=== PATIENT | male | born 2000 | race Caucasian/White ===

== ENCOUNTER 2018-01-14 15:12 | Inpatient (IN) | payer MEDICAID, SELFPAY ==
[2018-01-14 15:30] VITALS: BP 124/74; PULSE 93; RESP 16; TEMP 36.9; O2SAT 99; BMI 22.1; BMI 22.4
[2018-01-14] MEDS: chlordiazePOXIDE 25 MG Capsule PO (17:25)
[2018-01-14 18:00] VITALS: BP 141/68; PULSE 107; RESP 16; TEMP 36.9
[2018-01-14] MEDS: ARIPiprazole 2 MG Tablet PO (18:44)
[2018-01-14] MEDS: Venlafaxine XR 75 MG Capsule PO (18:44)
[2018-01-14] MEDS: Dicyclomine 10 MG Capsule 20 MG PO (18:54)
[2018-01-14] MEDS: Pramipexole Di-HCl 0.25 MG Tablet PO (19:00)
--- NOTE | 2018-01-14 21:15 | HP.PCM_ITS ---
Problem List (1) Opioid withdrawal Status: Acute History of Present Illness Date of Admission: 01/14/18 Chief Complaint: Opioid withdrawal The patient is a 17 year old M was directly admitted into the medical stabilization program at [facility] for acute opioid withdrawal. Patient has been using heroin for approximately 3 years and has recently began injecting heroin-before this he had snorted it. Patient complains of anxiety today, stomach cramps, tremors, nausea, nasal congestion, and generalized muscle aches. Last use of heroin was yesterday, patient also use methadone 2 days ago and he sometimes uses marijuana. Patient has a history of bipolar disorder and is currently on medications. On examination, patient is alert but appears nervous, he is appropriate, and somewhat reserved. Nation of the patient's arms reveal some track multani on the right arm which do not appear reddened or tender. Patient was directly admitted into the medical stabilization program on [facility] to for acute opiate withdrawal. Will adjust patient's bipolar medications which he states he recently was placed on after being off of for a period of a few months. Patient states that the medicines he currently takes were started recently and are at low doses. Past Medical History Allergies No Known Allergies Allergy (Verified 01/14/18 16:49) Surgical History: no surgical history Psychiatric History: Bipolar Lives: With Family Smoking Status: Current every day smoker Tobacco Use: Cigarettes Alcohol: None Drugs: Heroin, Marijuana, - - Meth - *Family History Maternal History Items: - - Recovering heroin addict Paternal History Items: No pertinent history Review of Systems Constitutional: Reports: Malaise, Fatigue. Denies: Chills, Fever, Weakness, Weight Change Eyes: Denies: Blurred vision, Cataracts, Conjunctivae Inflammation, Double vision, Drainage, Pain, Redness, Vision Change HEENT: Denies: Difficulty Hearing, Difficulty Swallowing, Dysphasia, Ear Pain, Eye Pain, Head Aches, Hearing Changes, Nasal bleeding, Nasal Congestion, Post Nasal Drip Cardiovascular: Denies: Chest Pain, Claudication, Chest Pressure, Chest Tightness, Edema Respiratory: Denies: Cough, Hemoptysis, Pleuritic Pain, Shortness of Breath, Shortness of breath upon exertion, Sputum production Gastrointestinal: Reports: Abdominal Pain - Complains of crampy abdominal pain, Nausea. Denies: Constipation, Diarrhea, Dyspepsia, Hematemesis, Hematochezia, Melena, Vomiting Genitourinary: Denies: Dysuria, Frequency, Hematuria, Hesitancy, Incontinence, Nocturia, Retention, Urgency Musculoskeletal: Reports: Muscle pain. Denies: Arm Pain, Back Pain, Foot Pain, Hand Pain, Joint stiffness, Joint swelling, Joint Tenderness, Leg Pain Skin: Denies: Dryness, Jaundice, Lesions, Pruritis, Rash, Skin Changes Neurological: Denies: Balance problems, Blurred vision, Double vision, Change in Speech, Difficulty swallowing, Focal weakness, Headaches, Incoordination Psychiatric: Reports: Anxiety, Depression. Denies: Homicidal Ideations, Suicidal Ideations Endocrine: Denies: Change in Body Habitus, Heat/ Cold Intolerance, Polyuria, Hx of Irradiation Hematologic/ Lymphatic: Denies: Adenopathy, Anemia, Easy Bruising, Hx of blood clot VTE Information - Inpt Only VTE Present on Admission: No VTE Mechan Device Prophylaxis: None VTE Pharm Prophylaxis ordered?: No Reason prophylaxis not ordered:: Treatment Not Indicated - low risk for VTE Patient Problems: Active and Suspected Problems Opioid withdrawal (Acute) - Physical Exam General: Alert, Oriented x3, Cooperative, No apparent distress, Well developed, Well nourished HEENT: Atraumatic, PERRLA, EOMI, Normocephalic Oral: Moist Mucosa Neck: Supple, No JVD, Negative Carotid Bruits, No Nuchal Rigidity, Trachea Midline, Thyroid Normal Size and Texture Lungs: Clear to auscultation, Normal air movement, No rhonchi, No wheeze, No rales Cardiovascular: Regular rate, Regular Rhythm, Normal S1, Normal S2, No murmurs, PMI Normal, No rub noted, No Gallop Abdomen: Bowel Sounds Present, Soft, Non Tender, Non-Distended, No hernias noted Extremities: No clubbing, No cyanosis, No edema, Capillary Refill Less than 3 Seconds Skin: No rashes, No breakdown, - - There are recent track multani on the patient' s right antecubital area, these do not appear to be reddened or tender Musculoskeletal: No Tenderness to Palpation of Joints or Extremities Neurological: Cranial nerves II-XII grossly intact, Neuro grossly intact, Sensory exam intact to light touch and pain, Coordination normal Psych/Mental Status: Normal Affect, Appropriate, Anxious, Restless, Alert and oriented to time, place, person, mood and affect Vital Signs Temp Pulse Resp BP Pulse Ox 98.4 F 107 H 16 141/68 H 99 01/14/18 18:00 01/14/18 18:00 01/14/18 18:00 01/14/18 18:00 01/14/18 15:30 Oxygen Delivery Method Room Air Weight: 59.1 kg Body Mass Index (BMI) 22.4 Assessment/Plan Active and Suspected Problems Opioid withdrawal (Acute) #1 acute opioid withdrawal-patient was admitted directly into the medical stabilization program, order sets were entered #2 bipolar disorder-I decided to increase the patient's medications which he takes as an outpatient, they are at low doses #3 polysubstance abuse including meth, heroin, and marijuana Code Visit Inpatient E&M: 20349 Init Hosp L3
[2018-01-14] MEDS: Methocarbamol 750 MG Tablet PO (21:43)
[2018-01-14] MEDS: Ibuprofen 600 MG Tablet PO (21:44)
[2018-01-14] MEDS: cloNIDine HCl 0.1 MG Tablet PO (21:44)
[2018-01-14] MEDS: QUEtiapine 25 MG Tablet PO (21:44)
[2018-01-14 21:47] VITALS: BP 123/66; PULSE 103; RESP 16; TEMP 37
--- NOTE | 2018-01-14 22:33 | NURSING ---
Patient disclosed to this nurse when his grandmother was not present that he uses: Fentanyl/Heroin and Methamphetamines. He has been injecting all 3 over the past 2-3 weeks. While doing assessment patient was reserved. Grandmother would answer questions directed at patient not allowing him a chance to answer. Patient also attempted to hide track multani from grandmother while doing assessment.
[2018-01-15 01:04] VITALS: BP 127/84; PULSE 87; RESP 14; TEMP 36.8
[2018-01-15] MEDS: cloNIDine HCl 0.1 MG Tablet PO ×2 (01:06→21:50)
[2018-01-15] MEDS: chlordiazePOXIDE 25 MG Capsule PO ×2 (01:06→17:10)
[2018-01-15] MEDS: Dicyclomine 10 MG Capsule 20 MG PO (01:07)
[2018-01-15] MEDS: Buprenorphine HCl 2 MG TAB.SUBL SL ×3 (01:07→17:11)
[2018-01-15] MEDS: Methocarbamol 750 MG Tablet PO ×2 (05:31→21:49)
[2018-01-15 05:35] VITALS: BP 115/60; PULSE 95; RESP 16; TEMP 36.4
[2018-01-15] MEDS: ARIPiprazole 2 MG Tablet PO (08:53)
[2018-01-15] MEDS: Venlafaxine XR 75 MG Capsule PO (08:53)
[2018-01-15 09:00] VITALS: BP 129/67; PULSE 109; RESP 16; TEMP 36.4
[2018-01-15 14:00] VITALS: BP 103/71; PULSE 84; RESP 16; TEMP 36.9
[2018-01-15] MEDS: Tuberculin,Purif.prot.deriv. 50 TU/ML Vial 5 ML ID (17:11)
--- NOTE | 2018-01-15 18:12 | PCM.PN.HOSP ---
Patient Problems: Active and Suspected Problems Opioid withdrawal (Acute) Subjective: CC: Opiate withdrawal This is a 17-year-old male who presented with symptom complex of opiate withdrawal. he reports Improve symptoms today. Vitals/I&O's: Vital Signs Temp Pulse Resp BP Pulse Ox 98.5 F 84 16 103/71 99 01/15/18 14:00 01/15/18 14:00 01/15/18 14:00 01/15/18 14:00 01/14/18 15:30 Oxygen Delivery Method Room Air Weight: 59.1 kg Body Mass Index (BMI) 22.4 Intake and Output for Last 24 Hours 01/13/18 01/14/18 01/15/18 23:59 23:59 23:59 Intake Total 870 / 870 Balance 870 / 870 General: Alert, Oriented x3, No apparent distress HEENT: Atraumatic, EOMI Neck: Supple, No JVD Lungs: Clear to auscultation, No rhonchi, No wheeze Cardiovascular: Regular rate, Normal S1, Normal S2 Abdomen: Bowel Sounds Present, Soft, Non Tender, Non-Distended Extremities: No clubbing Neurological: Cranial nerves II-XII grossly intact, Deep Tendon Reflexes 2+/4 and Symmetrical, Motor Exam 5/5 strength throughout Current Medications Acetaminophen (Tylenol) 500 mg PO Q4H PRN PRN PRN Reason: Temp > 100.4 F Aripiprazole (Abilify) 2 mg PO DAILY [facility] Last Admin: 01/15/18 08:53 Dose: 2 mg Buprenorphine HCl (Buprenorphine Hcl) 2 mg SL Q8H [facility] PRN Reason: Taper Stop: 01/17/18 20:14 Last Admin: 01/15/18 17:11 Dose: 2 mg Chlordiazepoxide (Librium) 25 mg PO Q6H PRN PRN PRN Reason: Anxiety Score 2-3/3 Last Admin: 01/15/18 17:10 Dose: 25 mg Clonidine (Catapres) 0.1 mg PO Q2H PRN PRN PRN Reason: Hot/Cold Sweats or Anxiety Last Admin: 01/15/18 01:06 Dose: 0.1 mg Dicyclomine HCl (Bentyl) 20 mg PO Q6H PRN PRN PRN Reason: Abdomnial Discomfort Last Admin: 01/15/18 01:07 Dose: 20 mg Ibuprofen (Motrin) 600 mg PO Q8H PRN PRN PRN Reason: Mild-Moderate Pain (1-5/10) Last Admin: 01/14/18 21:44 Dose: 600 mg Methocarbamol (Methocarbamol) 750 mg PO Q6H PRN PRN PRN Reason: Muscle Aches Last Admin: 01/15/18 05:31 Dose: 750 mg Nicotine (Nicoderm Cq (Pbkc)) 21 mg TRANSDERM. DAILY [facility] Last Admin: 01/15/18 08:53 Dose: 21 mg Ondansetron HCl (Zofran) 8 mg PO Q8H PRN PRN PRN Reason: NAUSEA/VOMITING Pramipexole Dihydrochloride (Mirapex) 0.25 mg PO Q12H PRN PRN PRN Reason: Restless Legs Last Admin: 01/14/18 19:00 Dose: 0.25 mg Quetiapine Fumarate (Seroquel) 25 mg PO QHS [facility] Last Admin: 01/14/18 21:44 Dose: 25 mg Venlafaxine HCl (Effexor Xr) 75 mg PO DAILY [facility] Last Admin: 01/15/18 08:53 Dose: 75 mg Assessment/Plan Active and Suspected Problems Opioid withdrawal (Acute) 1 acute opioid withdrawal; continue medical stabilization protocol. 2 substance use disorder; recommended to follow-up for outpatient drug rehabilitation program 3. bipolar disorder; stable. 4. Early ambulation for DVT prophylaxis Code Visit Inpatient E&M: 41066 [facility] Hosp L3
--- NOTE | 2018-01-15 18:15 | PN_ITS ---
Patient Problems: Active and Suspected Problems Opioid withdrawal (Acute) Subjective: CC: Opiate withdrawal This is a 17-year-old male who presented with symptom complex of opiate withdrawal. he reports Improve symptoms today. Vitals/I&O's: Vital Signs Temp Pulse Resp BP Pulse Ox 98.5 F 84 16 103/71 99 01/15/18 14:00 01/15/18 14:00 01/15/18 14:00 01/15/18 14:00 01/14/18 15:30 Oxygen Delivery Method Room Air Weight: 59.1 kg Body Mass Index (BMI) 22.4 Intake and Output for Last 24 Hours 01/13/18 01/14/18 01/15/18 23:59 23:59 23:59 Intake Total 870 / 870 Balance 870 / 870 General: Alert, Oriented x3, No apparent distress HEENT: Atraumatic, EOMI Neck: Supple, No JVD Lungs: Clear to auscultation, No rhonchi, No wheeze Cardiovascular: Regular rate, Normal S1, Normal S2 Abdomen: Bowel Sounds Present, Soft, Non Tender, Non-Distended Extremities: No clubbing Neurological: Cranial nerves II-XII grossly intact, Deep Tendon Reflexes 2+/4 and Symmetrical, Motor Exam 5/5 strength throughout Current Medications Acetaminophen (Tylenol) 500 mg PO Q4H PRN PRN PRN Reason: Temp > 100.4 F Aripiprazole (Abilify) 2 mg PO DAILY [facility] Last Admin: 01/15/18 08:53 Dose: 2 mg Buprenorphine HCl (Buprenorphine Hcl) 2 mg SL Q8H [facility] PRN Reason: Taper Stop: 01/17/18 20:14 Last Admin: 01/15/18 17:11 Dose: 2 mg Chlordiazepoxide (Librium) 25 mg PO Q6H PRN PRN PRN Reason: Anxiety Score 2-3/3 Last Admin: 01/15/18 17:10 Dose: 25 mg Clonidine (Catapres) 0.1 mg PO Q2H PRN PRN PRN Reason: Hot/Cold Sweats or Anxiety Last Admin: 01/15/18 01:06 Dose: 0.1 mg Dicyclomine HCl (Bentyl) 20 mg PO Q6H PRN PRN PRN Reason: Abdomnial Discomfort Last Admin: 01/15/18 01:07 Dose: 20 mg Ibuprofen (Motrin) 600 mg PO Q8H PRN PRN PRN Reason: Mild-Moderate Pain (1-5/10) Last Admin: 01/14/18 21:44 Dose: 600 mg Methocarbamol (Methocarbamol) 750 mg PO Q6H PRN PRN PRN Reason: Muscle Aches Last Admin: 01/15/18 05:31 Dose: 750 mg Nicotine (Nicoderm Cq (Pbkc)) 21 mg TRANSDERM. DAILY [facility] Last Admin: 01/15/18 08:53 Dose: 21 mg Ondansetron HCl (Zofran) 8 mg PO Q8H PRN PRN PRN Reason: NAUSEA/VOMITING Pramipexole Dihydrochloride (Mirapex) 0.25 mg PO Q12H PRN PRN PRN Reason: Restless Legs Last Admin: 01/14/18 19:00 Dose: 0.25 mg Quetiapine Fumarate (Seroquel) 25 mg PO QHS [facility] Last Admin: 01/14/18 21:44 Dose: 25 mg Venlafaxine HCl (Effexor Xr) 75 mg PO DAILY [facility] Last Admin: 01/15/18 08:53 Dose: 75 mg Assessment/Plan Active and Suspected Problems Opioid withdrawal (Acute) 1 acute opioid withdrawal; continue medical stabilization protocol. 2 substance use disorder; recommended to follow-up for outpatient drug rehabilitation program 3. bipolar disorder; stable. 4. Early ambulation for DVT prophylaxis Code Visit Inpatient E&M: 37233 [facility] Hosp L3
[2018-01-15 18:20] VITALS: BP 134/88; PULSE 93; RESP 16; TEMP 37.1
[2018-01-15] MEDS: Pramipexole Di-HCl 0.25 MG Tablet PO (18:28)
[2018-01-15] MEDS: QUEtiapine 25 MG Tablet PO (21:50)
[2018-01-15 21:52] VITALS: BP 130/74; PULSE 75; RESP 16; TEMP 36.8
[2018-01-16] VITALS (7 sets, daily range): BP systolic 104–128; BP diastolic 61–69; PULSE 67–90; RESP 14–20; TEMP 36.4–36.9; O2SAT 100
[2018-01-16] MEDS: Buprenorphine HCl 2 MG TAB.SUBL SL ×3 (01:03→20:50)
--- NOTE | 2018-01-16 02:03 | NURSING ---
Verbal handoff to ELIZABETH Villatoro
[2018-01-16] MEDS: Venlafaxine XR 75 MG Capsule PO (08:07)
[2018-01-16] MEDS: ARIPiprazole 2 MG Tablet PO (08:07)
--- NOTE | 2018-01-16 08:25 | NURSING ---
Pt awakened to give Subutex SL. Pt states he slept well through the night. Denies pain. This nurse offered him several prn's at this time, pt denies need. Withdraw score is 0.
--- NOTE | 2018-01-16 09:29 | PCM.PN.HOSP ---
Patient Problems: Active and Suspected Problems Opioid withdrawal (Acute) Subjective: CC: Opiate withdrawal This is a 17-year-old male who presented with symptom complex of opiate withdrawal, he is admitted to the hospital and placed on the [facility] opiate withdrawal protocol for medical stabilization. He reports improved symptoms today. Vitals/I&O's: Vital Signs Temp Pulse Resp BP Pulse Ox 98.5 F 79 18 110/69 100 01/16/18 08:00 01/16/18 08:00 01/16/18 08:00 01/16/18 08:00 01/16/18 07:59 Oxygen Delivery Method Room Air Weight: 59.1 kg Body Mass Index (BMI) 22.4 Intake and Output for Last 24 Hours 01/14/18 01/15/18 01/16/18 23:59 23:59 23:59 Intake Total 1450 / 1450 Balance 1450 / 1450 General: Alert, Oriented x3 HEENT: Atraumatic Oral: Moist Mucosa Neck: Supple, No JVD Cardiovascular: Regular rate, Normal S1, Normal S2 Extremities: No clubbing, No edema Neurological: Cranial nerves II-XII grossly intact, Motor Exam 5/5 strength throughout Psych/Mental Status: Normal Affect Current Medications Acetaminophen (Tylenol) 500 mg PO Q4H PRN PRN PRN Reason: Temp > 100.4 F Aripiprazole (Abilify) 2 mg PO DAILY [facility] Last Admin: 01/16/18 08:07 Dose: 2 mg Buprenorphine HCl (Buprenorphine Hcl) 2 mg SL Q12H [facility] PRN Reason: Taper Stop: 01/17/18 20:14 Last Admin: 01/16/18 08:05 Dose: 2 mg Chlordiazepoxide (Librium) 25 mg PO Q6H PRN PRN PRN Reason: Anxiety Score 2-3/3 Last Admin: 01/15/18 17:10 Dose: 25 mg Clonidine (Catapres) 0.1 mg PO Q2H PRN PRN PRN Reason: Hot/Cold Sweats or Anxiety Last Admin: 01/15/18 21:50 Dose: 0.1 mg Dicyclomine HCl (Bentyl) 20 mg PO Q6H PRN PRN PRN Reason: Abdomnial Discomfort Last Admin: 01/15/18 01:07 Dose: 20 mg Ibuprofen (Motrin) 600 mg PO Q8H PRN PRN PRN Reason: Mild-Moderate Pain (1-5/10) Last Admin: 01/14/18 21:44 Dose: 600 mg Methocarbamol (Methocarbamol) 750 mg PO Q6H PRN PRN PRN Reason: Muscle Aches Last Admin: 01/15/18 21:49 Dose: 750 mg Nicotine (Nicoderm Cq (Pbkc)) 21 mg TRANSDERM. DAILY [facility] Last Admin: 01/16/18 08:06 Dose: 21 mg Ondansetron HCl (Zofran) 8 mg PO Q8H PRN PRN PRN Reason: NAUSEA/VOMITING Pramipexole Dihydrochloride (Mirapex) 0.25 mg PO Q12H PRN PRN PRN Reason: Restless Legs Last Admin: 01/15/18 18:28 Dose: 0.25 mg Quetiapine Fumarate (Seroquel) 25 mg PO QHS [facility] Last Admin: 01/15/18 21:50 Dose: 25 mg Venlafaxine HCl (Effexor Xr) 75 mg PO DAILY [facility] Last Admin: 01/16/18 08:07 Dose: 75 mg Assessment/Plan Active and Suspected Problems Opioid withdrawal (Acute) 1 acute opioid withdrawal; we will continue on the medical stabilization protocol opiate withdrawal 2 substance use disorder; recommended to follow-up for outpatient drug rehabilitation program 3. bipolar disorder; stable. 4. Early ambulation for DVT prophylaxis Code Visit Inpatient E&M: 07707 [facility] Hosp L2
[2018-01-16] MEDS: Methocarbamol 750 MG Tablet PO (13:56)
[2018-01-16] MEDS: cloNIDine HCl 0.1 MG Tablet PO ×2 (13:56→18:10)
[2018-01-16] MEDS: Ibuprofen 600 MG Tablet PO (13:56)
[2018-01-16] MEDS: Dicyclomine 10 MG Capsule 20 MG PO (13:57)
[2018-01-16] MEDS: Ondansetron 8 MG Tablet PO (13:57)
[2018-01-16] MEDS: Pramipexole Di-HCl 0.25 MG Tablet PO (13:57)
[2018-01-16] MEDS: chlordiazePOXIDE 25 MG Capsule PO (13:57)
--- NOTE | 2018-01-16 16:02 | CHAPLAIN ---
Type of Pastoral Visit _x__ Initial Visit ___ Follow-up Visit ___ On-call Visit ___ General Patient Visit ___ Spiritual Assessment ___ Family Conference ___ Bereavement ___ Rapid Response ___ Code Blue ___ Other (describe below) Pastoral Care Referral From _x__ Patient _x__ Family ___ Nurse ___ Physician ___ Grocery Clerk Selling ___ Stove Installer _x__ Other (describe below) Sacrament/Intervention ___ Active listening ___ Anointing ___ Mandaen ___ Bereavement ___ Communion ___ Joanna exploration ___ ___ Life review ___ Prayer ___ Reconciliation ___ Sacrament of Sick ___ Supportive presence ___ Wedding ___ Other (describe below) Pastoral Comments on two attempts to visit the patient was sound asleep; grandmother of patient is in the room; offered support to grandmother and we sat and talked; grandmother has joanna and prays to God for the patient; she expressed desire to see pt well and free from addiction but hard to know what to do for him; grandmother says pt is fearful about being away from his family; left a note for patient to read offering support
[2018-01-16] MEDS: QUEtiapine 25 MG Tablet PO (20:59)
[2018-01-17 05:43] VITALS: BP 101/63; PULSE 72; RESP 16; TEMP 36.4
[2018-01-17 08:29] VITALS: BP 108/60; PULSE 82; RESP 14; TEMP 36.8
[2018-01-17] MEDS: Buprenorphine HCl 2 MG TAB.SUBL SL (08:33)
--- NOTE | 2018-01-17 10:34 | PCM.DC ---
- Discharge Diagnoses Current Active Problems: Current Active and Chronic Problems Opioid withdrawal (Acute) You will use the following diet at home:: No restrictions Your food should be the consistency of: Regular Your liquids should be the consistency of: Regular/Thin Discharge Activity: Return to Normal Activity Weight Bearing Status: Full weight bearing Allergies/Adverse Reactions: Allergies No Known Allergies Allergy (Verified 01/14/18 16:49) Medications to take at Discharge Aripiprazole [Abilify] 2 mg PO DAILY tablet 01/17/18 Quetiapine Fumarate [Seroquel] 25 mg PO QHS tablet 01/17/18 Primary Care Physician: Care Physician,No Primary [Primary Care Provider] - Please follow up with your Primary Care Physician in: in 2 weeks
[2018-01-17] MEDS: Dicyclomine 10 MG Capsule 20 MG PO (11:02)
[2018-01-17] MEDS: Pramipexole Di-HCl 0.25 MG Tablet PO (11:02)
[2018-01-17] MEDS: chlordiazePOXIDE 25 MG Capsule PO (11:03)
[2018-01-17] MEDS: Methocarbamol 750 MG Tablet PO (11:03)
[2018-01-17] MEDS: Venlafaxine XR 75 MG Capsule PO (11:03)
[2018-01-17] MEDS: ARIPiprazole 2 MG Tablet PO (11:03)
--- NOTE | 2018-01-18 21:33 | PCM.DC.SUM ---
Discharge Date and Diagnosis Date of Admission: 01/14/18 Date of Discharge: 01/17/18 - Primary Discharge Diagnosis #1 acute opioid withdrawal #2 heroin addiction #3 bipolar disorder Hospital Course and Treatment Operations: None Procedures: None Summary of Care Provided: The patient is a 17 year old M with a history of IV heroin addiction was directly admitted into the medical stabilization program after undergoing acute withdrawal. Patient complained of anxiety, stomach cramps, tremors, and muscle aches on admission. Patient was admitted to medical surgical 2 under the medical stabilization program, orders were entered using medical stabilization templates. Patient did well during his hospital stay, he had no major complications. On 01/17/18, patient was seen and examined felt to be in stable condition for discharge home Discharge Activity: Return to Normal Activity Weight Bearing Status: Full weight bearing Home Medications: Medications to take at Discharge Aripiprazole [Abilify] 2 mg PO DAILY tablet 01/17/18 Quetiapine Fumarate [Seroquel] 25 mg PO QHS tablet 01/17/18 Primary Care Physician: Care Physician,No Primary [Primary Care Provider] - Please follow up with your Primary Care Physician in: in 2 weeks Disposition: Home Minutes spent on discharge:: 34 Patient Condition:: Stable Meaningful Use Info Meaningful Use Diagnoses (Choose all that apply): None applicable Code Visit Inpatient E&M: 59656 Disch Hosp
== END 2018-01-17 11:10 | disposition home or self-care (01) | DRG 435 ==
PROVIDERS: Admitting Provider Internal Medicine; Visit Provider Internal Medicine
DX: F11.23 Opioid dependence with withdrawal (principal); F31.9 Bipolar disorder, unspecified; F12.10 Cannabis abuse, uncomplicated; F17.210 Nicotine dependence, cigarettes, uncomplicated; F15.10 Other stimulant abuse, uncomplicated

== ENCOUNTER 2019-05-11 11:00 | Observation (INO) | payer MEDICAID, SELFPAY ==
[2018-01-14 15:30] VITALS: BMI 22.4
[2019-05-11 11:07] VITALS: BP 124/64; PULSE 93; RESP 20; TEMP 36.4; O2SAT 99; BMI 23.8
--- NOTE | 2019-05-11 11:19 | PCM.HP.STD ---
Problem List (1) Acute opioid withdrawal Status: Acute (2) Methamphetamine abuse Status: Chronic (3) Nicotine dependence, cigarette smoking Status: Chronic History of Present Illness Date of Admission: 05/11/19 Chief Complaint: Acute opioid withdrawal syndrome The patient is a 18 year old M with history of opioid use, heroine started at the age of 14, half grams daily has been directly admitted to [facility] through [facility] for medical stabilization of opioid withdrawal syndrome. Patient is having tremors, restlessness and anxiety and muscle cramps. Denies vomiting or diarrhea. Patient also complained of severe anxiety, dry heaving, chills, thirst. Patient denies seizure or hallucination. Patient has history of abscess of bilateral antecubital region which is spontaneously resolved, malnutrition and weight loss and paranoid reaction and blackouts after substance overdose. [] Past Medical History Past Medical History (Chronic Problems): Chronic Problems Methamphetamine abuse (Chronic) Nicotine dependence, cigarette smoking (Chronic) Allergies No Known Allergies Allergy (Verified 01/14/18 16:49) Home Medications: Ambulatory Orders Medication Instructions Recorded Aripiprazole [Abilify] 2 mg PO DAILY tablet 01/17/18 Quetiapine Fumarate [Seroquel] 25 mg PO QHS tablet 01/17/18 Surgical History: no surgical history Psychiatric History: Bipolar Smoking Status: Current every day smoker - *Family History Maternal History Items: - - Recovering heroin addict Paternal History Items: No pertinent history Review of Systems Constitutional: Reports: Chills, Malaise, Weakness, Fatigue. Denies: Fever, Weight Change HEENT: Denies: Head Aches, Sinus Congestion, Sinus Drainage Cardiovascular: Denies: Chest Pain, Palpitations Respiratory: Denies: Cough, Shortness of breath at rest, Sputum production Gastrointestinal: Reports: Nausea. Denies: Abdominal Pain, Vomiting Genitourinary: Denies: Dysuria Musculoskeletal: Denies: Joint Pain, Joint Tenderness Skin: Reports: - - Small scarring on bilateral antecubital region of previous abscesses site. Denies: Rash, Wounds Neurological: Denies: Numbness, Tingling, Focal weakness Psychiatric: Reports: Anxiety, Depression. Denies: Homicidal Ideations, Suicidal Ideations Hematologic/ Lymphatic: Denies: Easy Bruising, Easy Bleeding VTE Information - Inpt Only VTE Present on Admission: No VTE Mechan Device Prophylaxis: None Reason prophylaxis not ordered:: Procedure Not Indicated Patient Problems: Active and Suspected Problems Acute opioid withdrawal (Acute) - Physical Exam General: Alert, Oriented x3, Cooperative HEENT: Atraumatic, PERRLA, EOMI, Normocephalic Neck: Supple, No JVD, Negative Carotid Bruits Lungs: Clear to auscultation, Normal air movement, No rhonchi, No wheeze, No rales Cardiovascular: Regular rate, Regular Rhythm, Normal S1, Normal S2, No murmurs Abdomen: Bowel Sounds Present, Soft, Non Tender, Non-Distended Extremities: No edema, Capillary Refill Less than 3 Seconds Skin: No rashes, No breakdown, - - Scar tissue present with an outside bilateral antecubital region at needle site 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 through [facility] program for medical stabilization of opioid withdrawal syndrome. Patient is having tremors, restlessness and anxiety and muscle cramps. Denies nausea vomiting or diarrhea. 1. Acute opioid withdrawal: Patient is being admitted on [facility] floor for medical stabilization as per [facility] protocol. Patient is on order set with Librium and buprenorphine tapering. Labs ordered. 2. Other polysubstance use including methamphetamine, heroin and marijuana: Counseling done for substance use cessation and quitting. [facility] shoe parts caser consult 3.history of abscess of bilateral antecubital region which is spontaneously resolved, malnutrition and weight loss and paranoid reaction and blackouts after substance overdose.. These are all consequences of polysubstance use. 4. DVT prophylaxis, low risk. No prophylaxis indicated. Early ambulation encouraged. Code Visit Inpatient E&M: 47887 Init Hosp L2
[2019-05-11 11:25] VITALS: PULSE 93; RESP 20
[2019-05-11] MEDS: Ondansetron ODT 4 MG Tablet PO (11:53)
[2019-05-11] MEDS: hydrOXYzine PAM 25 MG Capsule 50 MG PO ×2 (11:54→18:34)
[2019-05-11] MEDS: Buprenorphine HCl 2 MG TAB.SUBL SL ×2 (11:55→19:48)
[2019-05-11] MEDS: Pramipexole Di-HCl 0.25 MG Tablet PO (11:55)
[2019-05-11] MEDS: chlordiazePOXIDE 25 MG Capsule PO ×4 (11:55→23:16)
[2019-05-11 11:59] LABS: Absolute Lymphocyte Count 2.25 X10^3/ul (0.83-4.51); Absolute Neutrophil Count 6.9 X10^3/uL (2.0-7.7); Basophil# 0.04 X10^3/uL; Basophil% 0.4 % (0-1); Hematocrit 38.2 % (40-54); Hemoglobin 12.6 g/dl (13.0-16.5); Lymphocyte # 2.25 X10^3/ul (4.0); Lymphocyte % 23.3 % (19-41); Mean Corpuscular Hgb 26.5 pg (27.0-32.0); Mean Corpuscular Volume 80.3 fL (80-94); Monocyte# 0.43 X10^3/uL; Monocyte% 4.5 % (0-10); Neutrophil # 6.91 X10^3/uL (2.7-7.7); Neutrophil % 71.6 % (47-70); Platelet Count 497 K/mm3 (150-450); RBC Distribution Width CV 13.6 % (11.6-14.6); RBC Distribution Width SD 39.7 fl (35.1-43.9); Red Blood Count 4.76 M/mm3 (4.6-6.2); White Blood Count 9.7 K/mm3 (4.4-11.0)
[2019-05-11 12:05] LABS: POSITIVE COUNT NO; POSITIVE DIFFERENTIAL NO; POSITIVE MORPHOLOGY NO
[2019-05-11 12:15] LABS: ALB/GLOB Ratio 0.8 RATIO (0.9-2.4); AST(SGOT) 13 U/L (15-37); Alanine Aminotransfer ALT/SGPT 17 U/L (16-61); Albumin, Serum 4.2 g/dL (3.2-5.0); Alkaline Phosphatase 116 U/L (45-117); Anion Gap 9 (5-15); BUN 14 mg/dL (7-18); BUN/Creat Ratio 14.5 RATIO (10-20); Chloride 106 mmol/L (98-107); Creatinine, Serum 0.96 mg/dL (0.70-1.30); EST Glomerular Filtration Rate 105 mL/min (>60); Est Glom Filt Rate - Afr Amer 127 mL/min (>60); Estimated Creatinine Clearance 102.78 ml/min; Globulin 5.4 g/dL (2.2-4.2); Glucose 95 mg/dL (74-106); Potassium 3.9 mmol/L (3.5-5.1); Protein, Total 9.6 g/dL (6.4-8.2); Sodium Level 140 mmol/L (136-145)
[2019-05-11 12:19] LABS: Color, Urine Yellow (Yellow); Glucose, Dipstick Normal (Normal); Ketone-Dipstick 5 mg/dl (Negative); Leukocyte Esterase-Dipstick 25 /ul (Negative); Nitrite-Dipstick Negative (Negative); Occult Blood-Urine 10 /ul (Negative); Protein-Dipstick 30 mg/dl (Negative); Specific Gravity, Urine 1.015 (1.002-1.030); Urine Bilirubin Dipstick Negative (Negative); Urine Clarity Clear (Clear); Urine Urobilinogen 1 mg/dl (Normal)
[2019-05-11 12:20] LABS: International Normalized Ratio 1.1; Prothrombin Time (Protime)PT. 14.2 SECONDS (11.7-14.9)
[2019-05-11 12:25] LABS: Bacteria 1+ /hpf (None Seen); Red Blood Cells-Urine 0-5 SEEN /hpf (0-5); Squamous Epithelial Cells - UA 0-5 SEEN /hpf (0-5); White Blood Cells 0-5 SEEN /hpf (0-5)
[2019-05-11 12:26] LABS: Mucous, Urine 1+ /hpf (<or=2+)
[2019-05-11 12:48] LABS: Amphetamine Urine VISTA POSITIVE (<1000 ng/mL); Barbiturate Urine VISTA NEGATIVE (< 200 ng/mL); Benzodiazepine Urine VISTA NEGATIVE (< 200 ng/mL); Cocaine Urine VISTA NEGATIVE (< 300 ng/mL); Ecstacy Urine VISTA NEGATIVE (< 500 ng/mL); Methadone Urine VISTA NEGATIVE (< 300 ng/mL); PCP Urine VISTA NEGATIVE (< 25 ng/mL); THC Urine VISTA POSITIVE (< 50 ng/mL); Vista UDS pH Range 6
[2019-05-11 14:51] VITALS: BP 117/61; PULSE 76; RESP 16; TEMP 37.1
[2019-05-11 17:57] VITALS: BP 114/72; PULSE 90; RESP 16; TEMP 36.8
[2019-05-11 17:59] VITALS: O2SAT 100
[2019-05-11 21:54] VITALS: BP 115/84; PULSE 75; RESP 16; TEMP 36.7; O2SAT 98
[2019-05-11] MEDS: cloNIDine HCl 0.1 MG Tablet PO (22:01)
[2019-05-11] MEDS: traZODone 50 MG Tablet PO (22:01)
[2019-05-12 02:00] VITALS: BP 121/70; PULSE 81; RESP 16; TEMP 36.8; O2SAT 100
[2019-05-12] MEDS: Buprenorphine HCl 2 MG TAB.SUBL SL ×3 (04:09→19:01)
[2019-05-12] MEDS: chlordiazePOXIDE 25 MG Capsule PO ×2 (04:09→07:27)
[2019-05-12 06:32] VITALS: BP 101/66; PULSE 74; RESP 14; TEMP 36.3
[2019-05-12 11:02] VITALS: BP 102/65; PULSE 74; RESP 18; TEMP 36.7
--- NOTE | 2019-05-12 13:36 | PN_ITS ---
Patient Problems: Active and Suspected Problems Acute opioid withdrawal (Acute) Subjective: Overall, patient feels better with no tremors, restlessness, hot or cold feeling or diarrhea. CINA score is 3 Vitals/I&O's: Vital Signs Temp Pulse Resp BP Pulse Ox 98.1 F 74 18 102/65 100 05/12/19 11:02 05/12/19 11:02 05/12/19 11:02 05/12/19 11:02 05/12/19 02:00 Oxygen Delivery Method Room Air Weight: 138 lb 7.205 oz Body Mass Index (BMI) 23.8 Intake and Output for Last 24 Hours 05/10/19 05/11/19 05/12/19 23:59 23:59 23:59 Intake Total 1460 / 1460 220 / 220 Balance 1460 / 1460 220 / 220 General: Alert, Oriented x3, Cooperative HEENT: Atraumatic, PERRLA, EOMI, Normocephalic Neck: Supple, No JVD, Negative Carotid Bruits Lungs: Clear to auscultation, Normal air movement, No rhonchi, No wheeze, No rales Cardiovascular: Regular rate, Regular Rhythm, Normal S1, Normal S2, No murmurs Abdomen: Bowel Sounds Present, Soft, Non Tender, Non-Distended Extremities: No edema, Capillary Refill Less than 3 Seconds Skin: No rashes, No breakdown Musculoskeletal: No Tenderness to Palpation of Joints or Extremities, Arthritic Changes Neurological: Cranial nerves II-XII grossly intact, Deep Tendon Reflexes 2+/4 and Symmetrical, Neuro grossly intact, Motor Exam 5/5 strength throughout Psych/Mental Status: Normal Affect, Appropriate Current Medications Acetaminophen (Tylenol) 500 mg PO Q4H PRN PRN PRN Reason: Temp > 100.4 F Al Hydroxide/Mg Hydroxide (Mylanta Ii) 30 ml PO Q6H PRN PRN PRN Reason: dyspesia Bisacodyl (Dulcolax) 10 mg RECTAL DAILY PRN PRN Reason: Constipation Buprenorphine HCl (Buprenorphine Hcl) 2 mg SL Q8H CECILIA; Taper Stop: 05/14/19 15:29 Last Admin: 05/12/19 11:04 Dose: 2 mg Documented by: Chlordiazepoxide (Librium) 25 mg PO Q6H PRN PRN PRN Reason: Moderate-Severe Anxiety Clonidine (Catapres) 0.1 mg PO Q2H PRN PRN PRN Reason: Hot/Cold Sweats or Anxiety Last Admin: 05/11/19 22:01 Dose: 0.1 mg Documented by: Dicyclomine HCl (Bentyl) 20 mg PO Q6H PRN PRN PRN Reason: Abdomnial Discomfort Hydroxyzine HCl (Vistaril Vial) 50 mg IM Q6H PRN PRN PRN Reason: Breakthrough Anxiety Hydroxyzine Pamoate (Vistaril Pamoate Capsule) 50 mg PO Q6H PRN PRN PRN Reason: Mild Anxiety Last Admin: 05/11/19 18:34 Dose: 50 mg Documented by: Ibuprofen (Motrin) 600 mg PO Q8H PRN PRN PRN Reason: Mild-Moderate Pain (1-510) Loperamide HCl (Imodium) 2 - 4 mg PO UD PRN PRN Reason: LOOSE STOOLS Methocarbamol (Methocarbamol) 750 mg PO Q6H PRN PRN PRN Reason: Muscle Aches Nicotine (Nicoderm Cq (Pbkc)) 21 mg TRANSDERM. DAILY [facility] Last Admin: 05/12/19 11:04 Dose: 21 mg Documented by: Ondansetron HCl (Zofran Odt) 4 mg PO Q6H PRN PRN PRN Reason: NAUSEA Last Admin: 05/11/19 11:53 Dose: 4 mg Documented by: Pramipexole Dihydrochloride (Mirapex) 0.25 mg PO Q12H PRN PRN PRN Reason: Restless Legs Last Admin: 05/11/19 11:55 Dose: 0.25 mg Documented by: Senna (Senokot) 1 tablet PO QHS PRN PRN Reason: Constipation Sodium Chloride () 5 - 15 ml IV UD PRN PRN Reason: SALINE FLUSH Trazodone HCl (Desyrel) 50 mg PO QHS [facility] Last Admin: 05/11/19 22:01 Dose: 50 mg Documented by: Medical Necessity - Tobacco Use Smoking Status: Current every day smoker Assessment/Plan All Active Problems Opioid withdrawal (Acute) Acute opioid withdrawal (Acute) The patient is a 18 year old M with history of opioid use, heroine started at the age of 14, half grams daily has been directly admitted to [facility] for medical stabilization of opioid withdrawal syndrome. Patient is having tremors, restlessness and anxiety and muscle cramps. Denies nausea vomiting or diarrhea. 1. Acute opioid withdrawal: [facility] for [facility] as per [facility] protocol. Patient is on order set with Librium and buprenorphine tapering. CINA score is 3. Labs reviewed. LFT shows mild hypergammaglobulenemia. Alb 4.2, globulin 5.4. INR 1.1. BMP WNL. 2. Other polysubstance use including methamphetamine, heroin and marijuana: Counseling done for substance use cessation and quitting. [facility] shelter case manager consult 3.history of abscess of bilateral antecubital region which is spontaneously resolved, malnutrition and weight loss and paranoid reaction and blackouts after substance overdose.. These are all consequences of polysubstance use. 4. DVT prophylaxis, low risk. No prophylaxis indicated. Early ambulation encouraged. Code Visit Inpatient E&M: 20166 Subs Hosp L2
[2019-05-12 17:39] VITALS: BP 107/64; PULSE 81; RESP 18; TEMP 36.9
[2019-05-12] MEDS: hydrOXYzine PAM 25 MG Capsule 50 MG PO (17:43)
[2019-05-12] MEDS: cloNIDine HCl 0.1 MG Tablet PO (21:52)
[2019-05-12] MEDS: traZODone 50 MG Tablet PO (21:52)
[2019-05-12 22:00] VITALS: BP 106/56; PULSE 70; RESP 16; TEMP 37.1; O2SAT 100
[2019-05-13] VITALS (7 sets, daily range): BP systolic 99–107; BP diastolic 58–65; PULSE 68–89; RESP 16–18; TEMP 36.7–37.2; O2SAT 99–100
[2019-05-13] MEDS: Buprenorphine HCl 2 MG TAB.SUBL SL ×2 (03:20→15:27)
--- NOTE | 2019-05-13 10:00 | DCINST_ITS ---
- Discharge Diagnoses Current Active Problems: Current Active and Chronic Problems Acute opioid withdrawal (Acute) Methamphetamine abuse (Chronic) Nicotine dependence, cigarette smoking (Chronic) You will use the following diet at home:: Regular Your food should be the consistency of: Regular Discharge Activity: May Not Drive Weight Bearing Status: Weight bearing as tolerated Call your doctor if you observe: Fever of 101 or Higher, Inability to urinate, Inability to have a bowel movement, Shortness of breath, Dizziness, Fainting spells Allergies/Adverse Reactions: Allergies No Known Allergies Allergy (Verified 01/14/18 16:49) Medications to take at Discharge NK 05/11/19 Primary Care Physician: Care Physician,No Primary [Primary Care Provider] - Please follow up with your Primary Care Physician in: IN 1-2 WEEK Test Results: Test results from this visit will be discussed in further detail at your follow- up appointment, if applicable.
--- NOTE | 2019-05-13 10:02 | PCM.DC.SUM ---
Discharge Date and Diagnosis - Problem List Patient Problems: Active and Suspected Problems Acute opioid withdrawal (Acute) Date of Admission: 05/11/19 Date of Discharge: 05/14/19 - Primary Discharge Diagnosis Active and Suspected Problems Acute opioid withdrawal (Acute) - Secondary Discharge Diagnosis Chronic Problems Methamphetamine abuse (Chronic) Nicotine dependence, cigarette smoking (Chronic) Hospital Course and Treatment Operations: None Summary of Care Provided: The patient is a 18 year old M [] Patient Problems: Active and Suspected Problems Acute opioid withdrawal (Acute) - Physical Exam Vital Signs Temp Pulse Resp BP Pulse Ox 98.3 F 68 16 99/59 L 99 05/13/19 04:00 05/13/19 04:00 05/13/19 04:44 05/13/19 04:00 05/13/19 04:00 Oxygen Delivery Method Room Air Weight: 138 lb 7.205 oz Body Mass Index (BMI) 23.8 Intake and Output for Last 24 Hours 05/11/19 05/12/19 05/13/19 23:59 23:59 23:59 Intake Total 1460 / 1460 220 / 220 Balance 1460 / 1460 220 / 220 Discharge Activity: May Not Drive Weight Bearing Status: Weight bearing as tolerated Call your doctor if you observe: Fever of 101 or Higher, Inability to urinate, Inability to have a bowel movement, Shortness of breath, Dizziness, Fainting spells Home Medications: Medications to take at Discharge NK 05/11/19 Primary Care Physician: Care Physician,No Primary [Primary Care Provider] - Please follow up with your Primary Care Physician in: IN 1-2 WEEK Medical Necessity - Tobacco Use Smoking Status: Current every day smoker Meaningful Use Info Meaningful Use Diagnoses (Choose all that apply): None applicable
[2019-05-13] MEDS: cloNIDine HCl 0.1 MG Tablet PO (13:12)
[2019-05-13] MEDS: Pramipexole Di-HCl 0.25 MG Tablet PO (13:12)
[2019-05-13] MEDS: hydrOXYzine PAM 25 MG Capsule 50 MG PO (13:12)
--- NOTE | 2019-05-13 15:03 | PCM.PN.HOSP ---
Patient Problems: Active and Suspected Problems Acute opioid withdrawal (Acute) Subjective: Patient still has 2 more doses of buprenorphine although he feels good. CINA 4. Vitals/I&O's: Vital Signs Temp Pulse Resp BP Pulse Ox 98.5 F 74 18 102/65 99 05/13/19 13:10 05/13/19 13:10 05/13/19 13:10 05/13/19 13:10 05/13/19 04:00 Oxygen Delivery Method Room Air Weight: 138 lb 7.205 oz Body Mass Index (BMI) 23.8 Intake and Output for Last 24 Hours 05/11/19 05/12/19 05/13/19 23:59 23:59 23:59 Intake Total 1460 / 1460 220 / 220 Balance 1460 / 1460 220 / 220 General: Alert, Oriented x3, Cooperative HEENT: Atraumatic, PERRLA, EOMI, Normocephalic Neck: Supple, No JVD, Negative Carotid Bruits Lungs: Clear to auscultation, Normal air movement Cardiovascular: Regular rate, Regular Rhythm, Normal S1, Normal S2, No murmurs Abdomen: Bowel Sounds Present, Soft, Non Tender, Non-Distended, No Hepato-splenomegaly Extremities: No edema, Capillary Refill Less than 3 Seconds Skin: No rashes, No breakdown Musculoskeletal: No Tenderness to Palpation of Joints or Extremities Neurological: Cranial nerves II-XII grossly intact, Neuro grossly intact Psych/Mental Status: Normal Affect, Appropriate Current Medications Acetaminophen (Tylenol) 500 mg PO Q4H PRN PRN PRN Reason: Temp > 100.4 F Al Hydroxide/Mg Hydroxide (Mylanta Ii) 30 ml PO Q6H PRN PRN PRN Reason: dyspesia Bisacodyl (Dulcolax) 10 mg RECTAL DAILY PRN PRN Reason: Constipation Buprenorphine HCl (Buprenorphine Hcl) 2 mg SL Q12H CECILIA; Taper Stop: 05/14/19 15:29 Last Admin: 05/13/19 03:20 Dose: 2 mg Documented by: Chlordiazepoxide (Librium) 25 mg PO Q6H PRN PRN PRN Reason: Moderate-Severe Anxiety Clonidine (Catapres) 0.1 mg PO Q2H PRN PRN PRN Reason: Hot/Cold Sweats or Anxiety Last Admin: 05/13/19 13:12 Dose: 0.1 mg Documented by: Dicyclomine HCl (Bentyl) 20 mg PO Q6H PRN PRN PRN Reason: Abdomnial Discomfort Hydroxyzine HCl (Vistaril Vial) 50 mg IM Q6H PRN PRN PRN Reason: Breakthrough Anxiety Hydroxyzine Pamoate (Vistaril Pamoate Capsule) 50 mg PO Q6H PRN PRN PRN Reason: Mild Anxiety Last Admin: 05/13/19 13:12 Dose: 50 mg Documented by: Ibuprofen (Motrin) 600 mg PO Q8H PRN PRN PRN Reason: Mild-Moderate Pain (1-510) Loperamide HCl (Imodium) 2 - 4 mg PO UD PRN PRN Reason: LOOSE STOOLS Methocarbamol (Methocarbamol) 750 mg PO Q6H PRN PRN PRN Reason: Muscle Aches Nicotine (Nicoderm Cq (Pbkc)) 21 mg TRANSDERM. DAILY [facility] Last Admin: 05/13/19 11:02 Dose: Not Given Documented by: Ondansetron HCl (Zofran Odt) 4 mg PO Q6H PRN PRN PRN Reason: NAUSEA Last Admin: 05/11/19 11:53 Dose: 4 mg Documented by: Pramipexole Dihydrochloride (Mirapex) 0.25 mg PO Q12H PRN PRN PRN Reason: Restless Legs Last Admin: 05/13/19 13:12 Dose: 0.25 mg Documented by: Senna (Senokot) 1 tablet PO QHS PRN PRN Reason: Constipation Sodium Chloride () 5 - 15 ml IV UD PRN PRN Reason: SALINE FLUSH Trazodone HCl (Desyrel) 50 mg PO QHS [facility] Last Admin: 05/12/19 21:52 Dose: 50 mg Documented by: Medical Necessity - Tobacco Use Smoking Status: Current every day smoker Assessment/Plan All Active Problems Opioid withdrawal (Acute) Acute opioid withdrawal (Acute) The patient is a 18 year old M with history of opioid use, heroine started at the age of 14, half grams daily has been directly admitted to [facility] through [facility] for medical stabilization of opioid withdrawal syndrome. Patient is having tremors, restlessness and anxiety and muscle cramps. Denies nausea vomiting or diarrhea. 1. Acute opioid withdrawal: Patient is being admitted on [facility] floor for medical stabilization as per [facility] protocol. Patient is on order set with Librium and buprenorphine tapering. CINA score is 4. Labs reviewed. LFT shows mild hypergammaglobulenemia. Alb 4.2, globulin 5.4. INR 1.1. BMP WNL. Need 1 more day to complete his buprenorphine. Anticipate discharge tomorrow. 2. Other polysubstance use including methamphetamine, heroin and marijuana: Counseling done for substance use cessation and quitting. [facility] family preservation caseworker consult 3.history of abscess of bilateral antecubital region which is spontaneously resolved, malnutrition and weight loss and paranoid reaction and blackouts after substance overdose.. These are all consequences of polysubstance use. 4. DVT prophylaxis, low risk. No prophylaxis indicated. Early ambulation encouraged. Code Visit Inpatient E&M: 22727 Subs Hosp L2
[2019-05-13] MEDS: traZODone 50 MG Tablet PO (20:51)
[2019-05-14] MEDS: Buprenorphine HCl 2 MG TAB.SUBL SL (03:30)
[2019-05-14 03:32] VITALS: BP 94/56; PULSE 68; RESP 16; TEMP 36.6
[2019-05-14 08:50] VITALS: BP 108/67; PULSE 67; RESP 18; TEMP 36.9; O2SAT 99
--- NOTE | 2019-05-14 11:33 | DS.PCM_ITS ---
Discharge Date and Diagnosis Date of Admission: 05/11/19 Date of Discharge: 05/14/19 - Primary Discharge Diagnosis Active and Suspected Problems Acute opioid withdrawal (Acute) - Secondary Discharge Diagnosis Chronic Problems Methamphetamine abuse (Chronic) Nicotine dependence, cigarette smoking (Chronic) Hospital Course and Treatment Operations: None Summary of Care Provided: ] The patient is a 18 year old M with history of opioid use, heroine started at the age of 14, half grams daily has been directly admitted to [facility] through [facility] program for medical stabilization of opioid withdrawal syndrome. Patient is having tremors, restlessness and anxiety and muscle cramps. Denies nausea vomiting or diarrhea. 1. Acute opioid withdrawal: Patient is being admitted on [facility] floor for medical stabilization as per [facility] protocol. Patient is on order set with Librium and buprenorphine tapering. CINA score is 4. Labs reviewed. LFT shows mild hypergammaglobulenemia. Alb 4.2, globulin 5.4. INR 1.1. BMP WNL. Patient is being discharged home. Outpatient drug rehab set up by [facility]. Advised to follow-up. 2. Other polysubstance use including methamphetamine, heroin and marijuana: Counseling done for substance use cessation and quitting. [facility] evaluation was done. 3.history of abscess of bilateral antecubital region which is spontaneously resolved, malnutrition and weight loss and paranoid reaction and blackouts after substance overdose. Patient has physical and mental effects of drug use as me ntioned above. 4. DVT prophylaxis, low risk. No prophylaxis indicated. Early ambulation encouraged. Discharge medication reconciliation done. Discharge follow-up instructions completed. Discharge process discussed with the patient and all questions were answered to patient's satisfaction.. Follow-up PCP in 2 weeks Subjective: Seen and examined. Patient withdrawal symptoms have been controlled. - Physical Exam General: Alert, Oriented x3, Cooperative HEENT: Atraumatic, PERRLA, EOMI, Normocephalic Neck: Supple, No JVD, Negative Carotid Bruits Lungs: Clear to auscultation, Normal air movement, No rhonchi, No wheeze, No rales Cardiovascular: Regular rate, Regular Rhythm, Normal S1, Normal S2, No murmurs Abdomen: Bowel Sounds Present, Soft, Non Tender, Non-Distended Extremities: No edema, Capillary Refill Less than 3 Seconds Skin: No rashes, No breakdown Musculoskeletal: No Tenderness to Palpation of Joints or Extremities Neurological: Cranial nerves II-XII grossly intact, Deep Tendon Reflexes 2+/4 and Symmetrical, Neuro grossly intact, Motor Exam 5/5 strength throughout Psych/Mental Status: Normal Affect, Appropriate Vital Signs Temp Pulse Resp BP Pulse Ox 98 F 68 16 94/56 L 100 05/14/19 03:32 05/14/19 03:32 05/14/19 03:32 05/14/19 03:32 05/13/19 20:55 Oxygen Delivery Method Room Air Weight: 138 lb 7.205 oz Body Mass Index (BMI) 23.8 Intake and Output for Last 24 Hours 05/12/19 05/13/19 05/14/19 23:59 23:59 23:59 Intake Total 220 / 220 Balance 220 / 220 Discharge Activity: May Not Drive Weight Bearing Status: Weight bearing as tolerated Call your doctor if you observe: Fever of 101 or Higher, Inability to urinate, Inability to have a bowel movement, Shortness of breath, Dizziness, Fainting spells Home Medications: Medications to take at Discharge NK 05/11/19 Primary Care Physician: Care Physician,No Primary [Primary Care Provider] - Please follow up with your Primary Care Physician in: IN 1-2 WEEK Medical Necessity - Tobacco Use Smoking Status: Current every day smoker Meaningful Use Info Meaningful Use Diagnoses (Choose all that apply): None applicable Code Visit Inpatient E&M: 23680 Disch Hosp
== END 2019-05-14 09:10 | disposition home or self-care (01) | DRG 773 ==
PROVIDERS: Admitting Provider Internal Medicine; Referring Provider Internal Medicine; Visit Provider Internal Medicine
DX: F11.23 Opioid dependence with withdrawal (principal); F17.210 Nicotine dependence, cigarettes, uncomplicated; F15.10 Other stimulant abuse, uncomplicated; F12.90 Cannabis use, unspecified, uncomplicated
CPT/HCPCS: 36415; 80053; 80307; 80320; 81001; 85025; 85610; 99218; G0378; G0379; G0480

== ENCOUNTER 2020-08-26 14:48 | Observation (INO) | payer MEDICAID, SELFPAY ==
[2019-05-11 11:07] VITALS: BMI 23.8
[2020-08-26 14:49] VITALS: BP 145/84; PULSE 72; RESP 16; TEMP 36.4; O2SAT 99; BMI 29.2
--- NOTE | 2020-08-26 15:01 | EKG12_ITS ---
Test Reason : SA Blood Pressure : / mmHG Vent. Rate : 070 BPM Atrial Rate : 070 BPM P-R Int : 174 ms QRS Dur : 082 ms QT Int : 348 ms P-R-T Axes : 048 057 040 degrees QTc Int : 375 ms Normal sinus rhythm with sinus arrhythmia Normal ECG Confirmed by LILIA BRADLEY, TANIKA ([id number]), general expeditor JOHNY WHITFIELD ([id number]) on 08/30/2020 9:56:06 AM Referred By: ASHLEY Confirmed By:TANIKA RODRIGUES MD
--- NOTE | 2020-08-26 15:02 | ED.DCSUM_ITS ---
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 He presents to the hospital asking for detox from opiates. His drug abuse is fentanyl. He injects 2-3 times a day. He was in a rehab program greater than a year ago. He was brought to the emergency room by his mother. He states he last used this morning. He was tested for hepatitis and HIV 1 year ago and results were negative. 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 He denies fever, chills night sweats. Denies headache. He denies ocular, visual auditory symptoms. He denies neck pain. He denies paresthesia, anesthesia or motor weakness. He denies history of heart murmur or SBE. He states he is not immune suppressed. He denies cough or shortness of breath. He does report intermittent nausea. Denies vomiting or diarrhea. He denies myalgias, arthralgias. He does inject in his arms. He has not noted any evidence of infection and there is been no drainage. Prior similar symptoms: Yes Recent Illness/Hospitalization: No - Past Medical History (1) Methamphetamine abuse Status: Chronic (2) Nicotine dependence, cigarette smoking Status: Chronic Past Medical History - Allergies and Home Meds Allergies/Adverse Reactions: Allergies No Known Allergies Allergy (Verified 08/26/20 14:49) Primary Care Physician: Care Physician,No Primary [Primary Care Provider] - Prior records reviewed: Yes Surgical History: no surgical history Lives: With Family Smoking Status: Current every day smoker Alcohol: None Drugs: - - - Family History Maternal Family History: Reports: - - Recovering heroin addict Paternal Family History: Reports: No pertinent history Review of Systems General: Reports: Malaise. Denies: Chills, Fever, Subjective, Sweats Eyes: Denies: Visual changes - bilaterally, Blurred Vision - bilaterally ENT: Denies: Bilateral ear pain, Rhinorrhea, Sore throat Cardiovascular: Denies: Chest pain, Palpitations Respiratory: Denies: Dyspnea, Cough, Sputum, Dyspnea on exertion Gastrointestinal: Denies: Abdominal pain, Nausea, Vomiting, Diarrhea Genitourinary: Denies: Dysuria, Hematuria, Frequency Musculoskeletal: Denies: Myalgias, Arthralgias, Neck pain, Back pain, Swelling, Extremity Pain Skin: Denies: Rash, Wounds Neurological: Reports: Weakness. Denies: Headache, Parasthesia, Numbness Psych: Reports: Depression. Denies: Suicidal thoughts, Suicidal ideations Hematologic: Denies: Easy bruising, Easy bleeding Allergy: Denies: Uticaria, Swelling of the mouth Physical Exam Vital Signs/Narrative: Vital Signs Temp Pulse Resp BP Pulse Ox 08/26/20 14:49 97.6 F L 72 16 145/84 H 99 Inital Vital Signs reviewed: Yes General: No Acute Distress. Negative for: Well nourished, Well developed Head: Negative for: Normocephalic, Atraumatic Eyes: Perrl, EOMI. Negative for: Pale conjunctiva, Scleral icterus ENT: Moist mucous membranes, No rhinorrhea, TM's clear Neck: Supple, Nontender, No lymphadenopathy, No JVD Cardiovascular: Regular rate, Regular rhythm, No murmurs, Normal S1, Normal S2 Respiratory: No distress, CTA bilaterally, Chest nontender Abdomen: Soft, Nontender, Nondistended, Normal bowel sounds Rectal: Deferred Back: Nontender, Normal Inspection Extremities: Nontender, No edema, - - Numerous track multani noted hand and antecubital fossa. Recent injection sites noted. There is no evidence infection i.e. erythema, warmth, induration, lymphangitis, axillary lymphadenopathy or fluctuance. Skin: Normal color, No rash, Trauma - Injection sites/track multani Neurological: Alert, Oriented x3, Cranial nerves II-XII grossly intact, Normal Strength, Normal Sensation Psychological: Depressed Diagnostic/Tx/Re-eval Laboratory Results 08/26/20 08/26/20 08/26/20 15:10 15:10 15:30 WBC 7.4 RBC 4.65 Hgb 12.9 L Hct 40.5 MCV 87.1 MCH 27.7 MCHC 31.9 L RDW Std Deviation 39.0 RDW Coeff of Fernando 12.2 Plt Count 339 MPV 9.7 Immature Gran % (Auto) 0.300 Neut % (Auto) 61.9 Lymph % (Auto) 29.3 [place] % (Auto) 6.1 Eos % (Auto) 1.9 Baso % (Auto) 0.5 Absolute Neuts (auto) 4.6 Absolute Lymphs (auto) 2.16 Nucleated RBC % 0 Sodium 141 Potassium 4.2 Chloride 110 H Carbon Dioxide 27.0 Anion Gap 4 L BUN 14 Creatinine 0.82 Estim Creat Clear Calc 118.32 Est GFR (MDRD) Af Amer 150 Est GFR (MDRD) Non-Af 124 BUN/Creatinine Ratio 17.0 Glucose 88 Calcium 8.8 Total Bilirubin 0.20 AST 13 L ALT 18 Alkaline Phosphatase 136 H Total Protein 7.5 Albumin 3.6 Globulin 3.9 Albumin/Globulin Ratio 0.9 Ur Drug Screen Comment Tox and alcohol level are pending at time of dictation. The hospitalist was made aware of lab results and is aware that the tox and alcohol are pending. - EKG Initial EKG Interpretation: Sinus Rhythm - Sinus rhythm ventricular rate of 70. TX interval 174 ms. QS duration 82 ms. QT duration 348 ms. [place] is normal. Other than respiratory variance the EKG is normal. - Medical Decision Making Addiction medicine order set was initiated. Will obtain CMP to assess renal function as well as liver enzymes. Patient was treated with Zofran and dicyclomine. Presently his vital signs are unremarkable. ED Disposition - Plan for ED Patient: Referrals: Care Physician,No Primary [Primary Care Provider] -
[2020-08-26 15:20] LABS: Absolute Lymphocyte Count 2.16 X10^3/uL (0.83-4.51); Absolute Neutrophil Count 4.6 X10^3/uL (2.0-7.7); Basophil# 0.04 X10^3/uL; Basophil% 0.5 % (0-1); Eosinophil# 0.14 X10^3/uL; Eosinophils% 1.9 % (0-5); Hematocrit 40.5 % (40-54); Hemoglobin 12.9 g/dL (13.0-16.5); Lymphocyte # 2.16 X10^3/ul (4.0); Lymphocyte % 29.3 % (19-41); Mean Corp Hgb Conc 31.9 g/dL (32-36); Mean Corpuscular Hgb 27.7 pg (27.0-32.0); Mean Corpuscular Volume 87.1 fL (80-94); Mean Platelet Vol. 9.7 fl (6.2-12.0); Monocyte# 0.45 X10^3/uL; Monocyte% 6.1 % (0-10); NRBC Flagged by Analyzer 0 % (0-5); Neutrophil # 4.56 X10^3/uL (2.7-7.7); Neutrophil % 61.9 % (47-70); Platelet Count 339 K/mm3 (150-450); RBC Distribution Width CV 12.2 % (11.6-14.6); Red Blood Count 4.65 M/mm3 (4.6-6.2); White Blood Count 7.4 K/mm3 (4.4-11.0)
[2020-08-26] MEDS: Dicyclomine 10 MG Capsule 20 MG PO (15:29)
[2020-08-26] MEDS: Ondansetron ODT 4 MG Tablet PO (15:30)
[2020-08-26 15:36] LABS: ALB/GLOB Ratio 0.9 RATIO (0.9-2.4); AST(SGOT) 13 U/L (15-37); Alanine Aminotransfer ALT/SGPT 18 U/L (16-61); Albumin, Serum 3.6 g/dL (3.2-5.0); Alkaline Phosphatase 136 U/L (45-117); Anion Gap 4 (5-15); BUN 14 mg/dL (7-18); Calcium,Total 8.8 mg/dL (8.5-10.1); Chloride 110 mmol/L (98-107); Creatinine, Serum 0.82 mg/dL (0.70-1.30); EST Glomerular Filtration Rate 124 mL/min (>60); Est Glom Filt Rate - Afr Amer 150 mL/min (>60); Estimated Creatinine Clearance 118.32 ml/min; Globulin 3.9 g/dL (2.2-4.2); Glucose 88 mg/dL (74-106); Potassium 4.2 mmol/L (3.5-5.1); Protein, Total 7.5 g/dL (6.4-8.2); Sodium Level 141 mmol/L (136-145)
--- NOTE | 2020-08-26 15:55 | HP.PCM_ITS ---
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 He last was thru detox here April,. The patient started using again 1-2 months ago. He injects approximately 1 gram fentanyl daily which he last used this AM. He injects into the BL wrist and AC area. He states he wants to get clean again because right now life sucks. Current withdrawal symptoms include muscle aches. He denies alcohol use, occasionally uses marijuana. He smokes 10-15 cigs per day. His is at bedside and asked for initiation of treatment for depression, however on further discussion she revealed he formerly was treated for bipolar disorder with Latuda, and she was agreeable to deferring initiation of further treatment until after detox and when following up with a psychiatrist. [] Past Medical History Past Medical History (Chronic Problems): Chronic Problems Methamphetamine abuse (Chronic) Nicotine dependence, cigarette smoking (Chronic) Bipolar 1 disorder (Chronic) Allergies No Known Allergies Allergy (Verified 08/26/20 14:49) Home Medications: Ambulatory Orders Medication Instructions Recorded NK 05/11/19 Surgical History: herniorrhaphy, - - spinal surgery Psychiatric History: Bipolar Lives: With Family Smoking Status: Current every day smoker Tobacco Use: Cigarettes Alcohol: None Drugs: Marijuana, - - *Family History Maternal History Items: - - Recovering heroin addict Paternal History Items: No pertinent history - denies heart disease, stroke, diabetes, cancer Review of Systems Constitutional: Denies: Chills, Fever, Weight Change HEENT: Denies: Head Aches, Sinus Congestion, Sinus Drainage Cardiovascular: Denies: Chest Pain, Palpitations Respiratory: Denies: Cough, Shortness of breath at rest, Sputum production Gastrointestinal: Denies: Abdominal Pain, Nausea, Vomiting Genitourinary: Denies: Dysuria Musculoskeletal: Reports: Muscle pain. Denies: Joint Pain, Joint Tenderness Skin: Denies: Rash, Wounds Neurological: Denies: Numbness, Tingling, Focal weakness Psychiatric: Denies: Anxiety, Depression, Homicidal Ideations, Suicidal Ideations Hematologic/ Lymphatic: Denies: Easy Bruising, Easy Bleeding VTE Information - Inpt Only VTE Present on Admission: No VTE Mechan Device Prophylaxis: None VTE Pharm Prophylaxis ordered?: Yes - Physical Exam Vitals/I&O's: Vital Signs Temp Pulse Resp BP Pulse Ox 97.6 F L 72 16 145/84 H 99 08/26/20 14:49 08/26/20 14:49 08/26/20 14:49 08/26/20 14:49 08/26/20 14:49 Oxygen Delivery Method Room Air Weight: 170 lb 3.15 oz Body Mass Index (BMI) 29.2 General: Alert, Oriented x3, Cooperative HEENT: Atraumatic, PERRLA, EOMI, Normocephalic Neck: Supple, No JVD, Negative Carotid Bruits Lungs: Clear to auscultation, Normal air movement Cardiovascular: Regular rate, No murmurs Abdomen: Bowel Sounds Present, Soft, Non Tender Extremities: No edema, Capillary Refill Less than 3 Seconds Skin: No rashes, No breakdown Musculoskeletal: No Tenderness to Palpation of Joints or Extremities Neurological: Cranial nerves II-XII grossly intact Psych/Mental Status: Depressed, Alert and oriented to time, place, person, mood and affect Laboratory Results 08/26/20 15:10: WBC 7.4, RBC 4.65, Hgb 12.9 L, Hct 40.5, MCV 87.1, MCH 27.7, MCHC 31.9 L, RDW Std Deviation 39.0, RDW Coeff of Fernando 12.2, Plt Count 339, MPV 9.7, Immature Gran % (Auto) 0.300, Neut % (Auto) 61.9, Lymph % (Auto) 29.3, Lake % (Auto) 6.1, Eos % (Auto) 1.9, Baso % (Auto) 0.5, Absolute Neuts (auto) 4.6, Absolute Lymphs (auto) 2.16, Nucleated RBC % 0 08/26/20 15:10: Sodium 141, Potassium 4.2, Chloride 110 H, Carbon Dioxide 27.0, Anion Gap 4 L, BUN 14, Creatinine 0.82, Estim Creat Clear Calc 118.32, Est GFR (MDRD) Af Amer 150, Est GFR (MDRD) Non-Af 124, BUN/Creatinine Ratio 17.0, Glucose 88, Calcium 8.8, Total Bilirubin 0.20, AST 13 L, ALT 18, Alkaline Phosphatase 136 H, Total Protein 7.5, Albumin 3.6, Globulin 3.9, Albumin/Globulin Ratio 0.9 08/26/20 15:10: Ethyl Alcohol Pending 08/26/20 15:30: Urine Opiates Screen Pending, Urine Methadone Screen Pending, Ur Barbiturates Screen Pending, Ur Phencyclidine Scrn Pending, Ur Amphetamines Screen Pending, U Methamphetamin-MDMA Pending, U Benzodiazepines Scrn Pending, Urine Cocaine Screen Pending, U Cannabinoids Screen Pending, Ur Drug Screen Comment Assessment/Plan All Active Problems Opioid withdrawal (Acute) Acute opioid withdrawal (Acute) 1. Opiate abuse with withdrawal - uses 1 g fentanyl daily injects BL arms. occasional marijuana abuse. Tox + for cannabus. EtOH pending. Alk Phos mildly elevated - consider screen for Hep/HIV. 2. Bipolar I - previously on latuda not treated at this time. Strongly recommended f/u with psychiatrist. 3. Hx spinal infection due to IVDU, treated at [facility]. 4. Nicotine abuse - patch DVT ppx: early ambulation DC plannin referral. This patient was seen by Carloz Barker PA-C under the supervision of Dr. Bagley. <Leny Bagley - Last Filed: 08/26/20 16:51> History of Present Illness The patient is a 20 year old M [] Past Medical History Allergies No Known Allergies Allergy (Verified 08/26/20 14:49) - Physical Exam Vitals/I&O's: Vital Signs Temp Pulse Resp BP Pulse Ox 97.8 F 72 16 136/75 H 98 08/26/20 15:56 08/26/20 15:56 08/26/20 15:56 08/26/20 15:56 08/26/20 15:56 Oxygen Delivery Method Room Air Weight: 77.2 kg Body Mass Index (BMI) 29.2 Laboratory Results 08/26/20 15:10: WBC 7.4, RBC 4.65, Hgb 12.9 L, Hct 40.5, MCV 87.1, MCH 27.7, MCHC 31.9 L, RDW Std Deviation 39.0, RDW Coeff of Fernando 12.2, Plt Count 339, MPV 9.7, Immature Gran % (Auto) 0.300, Neut % (Auto) 61.9, Lymph % (Auto) 29.3, Lake % (Auto) 6.1, Eos % (Auto) 1.9, Baso % (Auto) 0.5, Absolute Neuts (auto) 4.6, Absolute Lymphs (auto) 2.16, Nucleated RBC % 0 08/26/20 15:10: Sodium 141, Potassium 4.2, Chloride 110 H, Carbon Dioxide 27.0, Anion Gap 4 L, BUN 14, Creatinine 0.82, Estim Creat Clear Calc 118.32, Est GFR (MDRD) Af Amer 150, Est GFR (MDRD) Non-Af 124, BUN/Creatinine Ratio 17.0, Glucose 88, Calcium 8.8, Total Bilirubin 0.20, AST 13 L, ALT 18, Alkaline Phosphatase 136 H, Total Protein 7.5, Albumin 3.6, Globulin 3.9, Albumin/Globulin Ratio 0.9 08/26/20 15:10: Ethyl Alcohol Pending 08/26/20 15:30: Urine Opiates Screen NEGATIVE, Urine Methadone Screen NEGATIVE, Ur Barbiturates Screen NEGATIVE, Ur Phencyclidine Scrn NEGATIVE, Ur Amphetamines Screen NEGATIVE, U Methamphetamin-MDMA NEGATIVE, U Benzodiazepines Scrn NEGATIVE, Urine Cocaine Screen NEGATIVE, U Cannabinoids Screen POSITIVE H, Ur Drug Screen Comment Current Medications Acetaminophen (Tylenol) 500 mg PO Q4H PRN PRN PRN Reason: Temp > 100.4 F Al Hydroxide/Mg Hydroxide (Mylanta Ii) 30 ml PO Q6H PRN PRN PRN Reason: dyspesia Bisacodyl (Dulcolax) 10 mg RECTAL DAILY PRN PRN Reason: Constipation Buprenorphine HCl (Buprenorphine Hcl) 4 mg SL Q8H CECILIA; Taper Stop: 08/29/20 16:29 Last Admin: 08/26/20 16:31 Dose: 4 mg Documented by: Clonidine (Catapres) 0.1 mg PO Q8H PRN PRN PRN Reason: RESTLESSNESS Dicyclomine HCl (Bentyl) 20 mg PO Q6H PRN PRN PRN Reason: Abdominal Discomfort Gabapentin (Neurontin) 300 mg PO Q8H PRN PRN PRN Reason: moderate to severe anxiety Hydroxyzine Pamoate (Vistaril Pamoate Capsule) 50 mg PO Q6H PRN PRN PRN Reason: mild anxiety Ibuprofen (Motrin) 600 mg PO Q8H PRN PRN PRN Reason: Pain Score 1-10/10 Loperamide HCl (Imodium) 2 mg PO Q4H PRN PRN PRN Reason: LOOSE STOOLS Methocarbamol (Methocarbamol) 1,500 mg PO Q6H PRN PRN PRN Reason: MUSCLE SPASM Nicotine (Nicoderm Cq (Pbkc)) 21 mg TRANSDERM. DAILY CECILIA Ondansetron HCl (Zofran) 8 mg PO Q8H PRN PRN PRN Reason: NAUSEA Senna (Senokot) 2 tablet PO QHS PRN PRN Reason: Constipation Trazodone HCl (Desyrel) 100 mg PO QHS PRN PRN PRN Reason: INSOMNIA Assessment/Plan This patient was seen in conjunction with ANNE Irving. I have independently interviewed and examined the patient and reviewed pertinent historical, laboratory, and other data. Please refer to ANNE Irving note for his patient's presentation, findings, and recommendations. I have reviewed and his note and concur with his documentation 20y/o male with PMHx of polysubstance use disorder, h/o spinal abscess secondary to IV drug ue comes in requesting for medical stabilization. Patient had been sober until he started to reuse 1 g of fentanyl over last 2 months. He last used fentanyl this morning. Physical Exam: Gen: Comfortable, not pale, not jaundiced, well hydrated CVS:HS I +II, regular, no murmurs RESP: CTA GI: BS present and normal, soft, nontender, no palpable organs EXT:No edema ASSESSMENT: 1. Acute opioid withdrawal 2. Bipolar disorder 3. Nicotine dependence 4. H/o spinal abscess Plan: Continue on the buprenorphine withdrawal protocol Nicotine replacement Advised to quit using smoking and using illicit drugs Inpatient E&M: 16054 Init Hosp L2
[2020-08-26 15:56] VITALS: BP 136/75; PULSE 72; RESP 16; TEMP 36.6; O2SAT 98
[2020-08-26 16:01] LABS: Amphetamine Urine VISTA NEGATIVE (<1000 ng/mL); Barbiturate Urine VISTA NEGATIVE (< 200 ng/mL); Benzodiazepine Urine VISTA NEGATIVE (< 200 ng/mL); Cocaine Urine VISTA NEGATIVE (< 300 ng/mL); Ecstacy Urine VISTA NEGATIVE (< 500 ng/mL); Methadone Urine VISTA NEGATIVE (< 300 ng/mL); PCP Urine VISTA NEGATIVE (< 25 ng/mL); THC Urine VISTA POSITIVE (< 50 ng/mL); Vista UDS pH Range 5
--- NOTE | 2020-08-26 16:01 | CM.ED ---
SOCIAL WORK Informant: Dr. Colby Reason for Consult: Substance Abuse Patient admitted to [facility] for medical withdrawal management. Patient reports injects fentanyl 2-3 times/day. Call to Ivonne with [facility] to update on admission. Ivonne to be in tomorrow to complete assessment. Le Flores, CAR USHER, EMAIL MARKETING MANAGER
[2020-08-26 16:02] VITALS: BMI 28.5; BMI 29.2
[2020-08-26] MEDS: Buprenorphine HCl 2 MG TAB.SUBL SL (16:31)
[2020-08-26 16:37] LABS: Alcohol, Blood (Medical)-Serum < 3.0 mg/dL
[2020-08-26 16:47] VITALS: BP 112/72; PULSE 69; RESP 18; TEMP 36.7; O2SAT 100
[2020-08-26 20:51] VITALS: BP 111/64; PULSE 92; RESP 18; TEMP 37; O2SAT 97
[2020-08-26 21:45] VITALS: TEMP 37
[2020-08-26] MEDS: cloNIDine HCl 0.1 MG Tablet PO (22:04)
[2020-08-27] MEDS: Buprenorphine HCl 2 MG TAB.SUBL SL ×3 (00:45→16:07)
[2020-08-27 00:47] VITALS: BP 102/53; PULSE 77; RESP 18; TEMP 37.1; O2SAT 97
[2020-08-27 04:41] VITALS: BP 134/61; PULSE 79; RESP 18; TEMP 36.8; O2SAT 97
[2020-08-27] MEDS: Gabapentin 300 MG Capsule PO ×2 (04:48→16:08)
[2020-08-27] MEDS: Dicyclomine 10 MG Capsule 20 MG PO ×2 (08:23→16:08)
[2020-08-27 08:31] VITALS: BP 118/84; PULSE 88; RESP 18; TEMP 36.6; O2SAT 98
[2020-08-27] MEDS: cloNIDine HCl 0.1 MG Tablet PO (10:03)
[2020-08-27] MEDS: Acetaminophen 500 MG Tablet PO ×2 (10:03→16:08)
[2020-08-27] MEDS: Ibuprofen 600 MG Tablet PO (10:03)
[2020-08-27] MEDS: Methocarbamol 750 MG Tablet 1500 MG PO (10:04)
[2020-08-27] MEDS: hydrOXYzine PAM 25 MG Capsule 50 MG PO ×2 (10:04→16:09)
[2020-08-27] MEDS: LORazepam 1 MG Tablet 2 MG PO (10:13)
[2020-08-27 11:26] VITALS: BP 119/69; PULSE 80; RESP 18; TEMP 36.6; O2SAT 96
--- NOTE | 2020-08-27 12:52 | PCM.PN.HOSP ---
<Carloz Barker PA - Last Filed: 08/27/20 12:52> Reason for Visit: heroin withdrawal Subjective: current withdrawal symptoms include nausea no vomiting, body aches, and anxiety. pt feels he is doing well. Vitals/I&O's: Vital Signs Temp Pulse Resp BP Pulse Ox 97.9 F 80 18 119/69 96 08/27/20 11:26 08/27/20 11:26 08/27/20 11:26 08/27/20 11:26 08/27/20 11:26 Oxygen Delivery Method Room Air Weight: 166 lb 3.657 oz Body Mass Index (BMI) 28.5 Intake and Output for Last 24 Hours 08/25/20 08/26/20 08/27/20 23:59 23:59 23:59 Intake Total 1200 / 1200 300 / 300 Balance 1200 / 1200 300 / 300 General: Alert, Oriented x3, Cooperative HEENT: Atraumatic, PERRLA, EOMI, Normocephalic Neck: Supple, No JVD, Negative Carotid Bruits Lungs: Clear to auscultation, Normal air movement Cardiovascular: Regular rate, No murmurs Abdomen: Bowel Sounds Present, Soft, Non Tender Extremities: No edema, Capillary Refill Less than 3 Seconds Skin: No rashes, No breakdown Musculoskeletal: No Tenderness to Palpation of Joints or Extremities Neurological: Cranial nerves II-XII grossly intact Psych/Mental Status: Normal Affect, Appropriate, Alert and oriented to time, place, person, mood and affect Laboratory Results 08/26/20 15:10: WBC 7.4, RBC 4.65, Hgb 12.9 L, Hct 40.5, MCV 87.1, MCH 27.7, MCHC 31.9 L, RDW Std Deviation 39.0, RDW Coeff of Fernando 12.2, Plt Count 339, MPV 9.7, Immature Gran % (Auto) 0.300, Neut % (Auto) 61.9, Lymph % (Auto) 29.3, [place] % (Auto) 6.1, Eos % (Auto) 1.9, Baso % (Auto) 0.5, Absolute Neuts (auto) 4.6, Absolute Lymphs (auto) 2.16, Nucleated RBC % 0 08/26/20 15:10: Sodium 141, Potassium 4.2, Chloride 110 H, Carbon Dioxide 27.0, Anion Gap 4 L, BUN 14, Creatinine 0.82, Estim Creat Clear Calc 118.32, Est GFR (MDRD) Af Amer 150, Est GFR (MDRD) Non-Af 124, BUN/Creatinine Ratio 17.0, Glucose 88, Calcium 8.8, Total Bilirubin 0.20, AST 13 L, ALT 18, Alkaline Phosphatase 136 H, Total Protein 7.5, Albumin 3.6, Globulin 3.9, Albumin/Globulin Ratio 0.9 08/26/20 15:10: Ethyl Alcohol < 3.0 08/26/20 15:30: Urine Opiates Screen NEGATIVE, Urine Methadone Screen NEGATIVE, Ur Barbiturates Screen NEGATIVE, Ur Phencyclidine Scrn NEGATIVE, Ur Amphetamines Screen NEGATIVE, U Methamphetamin-MDMA NEGATIVE, U Benzodiazepines Scrn NEGATIVE, Urine Cocaine Screen NEGATIVE, U Cannabinoids Screen POSITIVE H, Ur Drug Screen Comment Current Medications Acetaminophen (Tylenol) 500 mg PO Q4H PRN PRN PRN Reason: Temp > 100.4 F Last Admin: 08/27/20 10:03 Dose: 500 mg Documented by: Al Hydroxide/Mg Hydroxide (Mylanta Ii) 30 ml PO Q6H PRN PRN PRN Reason: dyspesia Bisacodyl (Dulcolax) 10 mg RECTAL DAILY PRN PRN Reason: Constipation Buprenorphine HCl (Buprenorphine Hcl) 4 mg SL Q8H CECILIA; Taper Stop: 08/29/20 16:29 Last Admin: 08/27/20 08:20 Dose: 4 mg Documented by: Clonidine (Catapres) 0.1 mg PO Q8H PRN PRN PRN Reason: RESTLESSNESS Last Admin: 08/27/20 10:03 Dose: 0.1 mg Documented by: Dicyclomine HCl (Bentyl) 20 mg PO Q6H PRN PRN PRN Reason: Abdominal Discomfort Last Admin: 08/27/20 08:23 Dose: 20 mg Documented by: Gabapentin (Neurontin) 300 mg PO Q8H PRN PRN PRN Reason: moderate to severe anxiety Last Admin: 08/27/20 04:48 Dose: 300 mg Documented by: Hydroxyzine Pamoate (Vistaril Pamoate Capsule) 50 mg PO Q6H PRN PRN PRN Reason: mild anxiety Last Admin: 08/27/20 10:04 Dose: 50 mg Documented by: Ibuprofen (Motrin) 600 mg PO Q8H PRN PRN PRN Reason: Pain Score 1-10/10 Last Admin: 08/27/20 10:03 Dose: 600 mg Documented by: Loperamide HCl (Imodium) 2 mg PO Q4H PRN PRN PRN Reason: LOOSE STOOLS Methocarbamol (Methocarbamol) 1,500 mg PO Q6H PRN PRN PRN Reason: MUSCLE SPASM Last Admin: 08/27/20 10:04 Dose: 1,500 mg Documented by: Nicotine (Nicoderm Cq (Pbkc)) 21 mg TRANSDERM. DAILY CECILIA Last Admin: 08/27/20 08:23 Dose: 21 mg Documented by: Ondansetron HCl (Zofran) 8 mg PO Q8H PRN PRN PRN Reason: NAUSEA Senna (Senokot) 2 tablet PO QHS PRN PRN Reason: Constipation Sodium Chloride () 10 - 40 ml IV UD PRN PRN Reason: SALINE FLUSH Trazodone HCl (Desyrel) 100 mg PO QHS PRN PRN PRN Reason: INSOMNIA STROKE Vital Signs/Narrative: Vital Signs Temp Pulse Resp BP Pulse Ox 08/27/20 11:26 97.9 F 80 18 119/69 96 Medical Necessity - Tobacco Use Smoking Status: Current every day smoker Tobacco Use: Cigarettes Assessment/Plan All Active Problems Opioid withdrawal (Acute) Acute opioid withdrawal (Acute) 1. Opiate abuse with withdrawal - uses 1 g fentanyl daily injects BL arms. occasional marijuana abuse. Tox + for cannabis. EtOH neg. Alk Phos mildly elevated. 2. Bipolar I - previously on latuda not treated at this time. Strongly recommended f/u with psychiatrist. Affect is pleasant and calm at this time. 3. Hx spinal infection due to IVDU, treated at [facility]. 4. Nicotine abuse - patch DVT ppx: early ambulation DC plannin referral. This patient was seen by Carloz Barker PA-C under the supervision of Dr. De Leon <Iris De Leon E - Last Filed: 08/27/20 13:06> Vitals/I&O's: Vital Signs Temp Pulse Resp BP Pulse Ox 97.9 F 80 18 119/69 96 08/27/20 11:26 08/27/20 11:26 08/27/20 11:26 08/27/20 11:26 08/27/20 11:26 Oxygen Delivery Method Room Air Weight: 166 lb 3.657 oz Body Mass Index (BMI) 28.5 Intake and Output for Last 24 Hours 08/25/20 08/26/20 08/27/20 23:59 23:59 23:59 Intake Total 1200 / 1200 300 / 300 Balance 1200 / 1200 300 / 300 Laboratory Results 08/26/20 15:10: WBC 7.4, RBC 4.65, Hgb 12.9 L, Hct 40.5, MCV 87.1, MCH 27.7, MCHC 31.9 L, RDW Std Deviation 39.0, RDW Coeff of Fernando 12.2, Plt Count 339, MPV 9.7, Immature Gran % (Auto) 0.300, Neut % (Auto) 61.9, Lymph % (Auto) 29.3, [place] % (Auto) 6.1, Eos % (Auto) 1.9, Baso % (Auto) 0.5, Absolute Neuts (auto) 4.6, Absolute Lymphs (auto) 2.16, Nucleated RBC % 0 08/26/20 15:10: Sodium 141, Potassium 4.2, Chloride 110 H, Carbon Dioxide 27.0, Anion Gap 4 L, BUN 14, Creatinine 0.82, Estim Creat Clear Calc 118.32, Est GFR (MDRD) Af Amer 150, Est GFR (MDRD) Non-Af 124, BUN/Creatinine Ratio 17.0, Glucose 88, Calcium 8.8, Total Bilirubin 0.20, AST 13 L, ALT 18, Alkaline Phosphatase 136 H, Total Protein 7.5, Albumin 3.6, Globulin 3.9, Albumin/Globulin Ratio 0.9 08/26/20 15:10: Ethyl Alcohol < 3.0 08/26/20 15:30: Urine Opiates Screen NEGATIVE, Urine Methadone Screen NEGATIVE, Ur Barbiturates Screen NEGATIVE, Ur Phencyclidine Scrn NEGATIVE, Ur Amphetamines Screen NEGATIVE, U Methamphetamin-MDMA NEGATIVE, U Benzodiazepines Scrn NEGATIVE, Urine Cocaine Screen NEGATIVE, U Cannabinoids Screen POSITIVE H, Ur Drug Screen Comment Current Medications Acetaminophen (Tylenol) 500 mg PO Q4H PRN PRN PRN Reason: Temp > 100.4 F Last Admin: 08/27/20 10:03 Dose: 500 mg Documented by: Al Hydroxide/Mg Hydroxide (Mylanta Ii) 30 ml PO Q6H PRN PRN PRN Reason: dyspesia Bisacodyl (Dulcolax) 10 mg RECTAL DAILY PRN PRN Reason: Constipation Buprenorphine HCl (Buprenorphine Hcl) 4 mg SL Q8H CECILIA; Taper Stop: 08/29/20 16:29 Last Admin: 08/27/20 08:20 Dose: 4 mg Documented by: Clonidine (Catapres) 0.1 mg PO Q8H PRN PRN PRN Reason: RESTLESSNESS Last Admin: 08/27/20 10:03 Dose: 0.1 mg Documented by: Dicyclomine HCl (Bentyl) 20 mg PO Q6H PRN PRN PRN Reason: Abdominal Discomfort Last Admin: 08/27/20 08:23 Dose: 20 mg Documented by: Gabapentin (Neurontin) 300 mg PO Q8H PRN PRN PRN Reason: moderate to severe anxiety Last Admin: 08/27/20 04:48 Dose: 300 mg Documented by: Hydroxyzine Pamoate (Vistaril Pamoate Capsule) 50 mg PO Q6H PRN PRN PRN Reason: mild anxiety Last Admin: 08/27/20 10:04 Dose: 50 mg Documented by: Ibuprofen (Motrin) 600 mg PO Q8H PRN PRN PRN Reason: Pain Score 1-10/10 Last Admin: 08/27/20 10:03 Dose: 600 mg Documented by: Loperamide HCl (Imodium) 2 mg PO Q4H PRN PRN PRN Reason: LOOSE STOOLS Methocarbamol (Methocarbamol) 1,500 mg PO Q6H PRN PRN PRN Reason: MUSCLE SPASM Last Admin: 08/27/20 10:04 Dose: 1,500 mg Documented by: Nicotine (Nicoderm Cq (Pbkc)) 21 mg TRANSDERM. DAILY CECILIA Last Admin: 08/27/20 08:23 Dose: 21 mg Documented by: Ondansetron HCl (Zofran) 8 mg PO Q8H PRN PRN PRN Reason: NAUSEA Senna (Senokot) 2 tablet PO QHS PRN PRN Reason: Constipation Sodium Chloride () 10 - 40 ml IV UD PRN PRN Reason: SALINE FLUSH Trazodone HCl (Desyrel) 100 mg PO QHS PRN PRN PRN Reason: INSOMNIA STROKE Vital Signs/Narrative: Vital Signs Temp Pulse Resp BP Pulse Ox 08/27/20 11:26 97.9 F 80 18 119/69 96 Assessment/Plan Hospitalist note: I am seeing this patient in conjunction with Carloz Barker. I independently seen and examined the patient. Progress note above and laboratory data reviewed and I concur with above treatment plan. When I entered the room, patient was very anxious, restless and tearful. He complained of significant withdrawal symptoms including restlessness and body aches as well as nausea without vomiting. His vital signs are stable. Nursing staff requested to give the patient Ativan 2 mg p.o. x1. - Physical Exam General: Alert, Oriented x3, Cooperative, No apparent distress, anxious,. HEENT: Atraumatic, PERRLA, EOMI. Neck: Supple, No JVD, Negative Carotid Bruits, Trachea Midline, Thyroid Normal. Lungs: Clear to auscultation, Normal air movement, No rhonchi, No wheeze, No rales. Cardiovascular: Regular rate, Regular Rhythm, Normal S1, Normal S2, PMI Normal. Abdomen: Bowel Sounds Present, Soft, Non Tender, Non-Distended, No Hepato-splenomegaly. Extremities: No clubbing, No cyanosis, No edema Skin: No rashes, No breakdown Neurological: Cranial nerves are intact, neuro grossly intact Vital Signs are stable. Assessment and plan: #1 acute opioid withdrawal: He is on tapering Subutex, PRN Catapres, Bentyl, Tylenol, Neurontin, Vistaril, Motrin, methocarbamol, Zofran and trazodone. This morning, he is restless, anxious. His vital signs are stable. Routine blood work including LFT was unremarkable. Urine drug screen was positive for cannabinoids. Blood alcohol level was less than 3. Patient still symptomatic and he is appropriate for inpatient treatment. Plan: Continue same treatment, Ativan 2 mg p.o. x1, consult 180 program. #2 other chronic medical problems: Stable, continue current medications if any. This note was generated with Jusp dictation software. It may contain incorrect words, spelling, and punctuation that were not noted in checking the note before signing. Inpatient E&M: 45101 Subs Hosp L2
[2020-08-27 20:08] VITALS: BP 112/60; PULSE 70; RESP 18; TEMP 37.2; O2SAT 99
[2020-08-28] MEDS: Buprenorphine HCl 2 MG TAB.SUBL SL ×2 (00:33→10:09)
[2020-08-28 00:34] VITALS: BP 121/71; PULSE 83; RESP 18; TEMP 37; O2SAT 100
[2020-08-28 05:14] VITALS: BP 129/62; PULSE 78; RESP 16; TEMP 36.8; O2SAT 99
[2020-08-28] MEDS: cloNIDine HCl 0.1 MG Tablet PO (05:23)
--- NOTE | 2020-08-28 10:01 | ADDICTION ---
This pattern chart writer met with patient in his room to complete ASAM, MSE, DUDIT assessments and d/c planning. Patient was alert and oriented x4 but was withdrawn throughout this meeting. Patient rejected recommendation for PCP and refused referral/contact information for PCP's in the [place] area. He verbalized amiability to engage in treatment with [facility] and was agreeable to making a follow-up appointment during this visit. [facility] staff did not answer call- client stated that he will follow-up after d/c from [facility]. He refused residential recommendation stating that he has to return to work. He declined transportation coordination for discharge. He plans to d/c tomorrow (08/29/2020) and states that he plans to live with his grandmother. Completed assessments to be faxed to [facility].
[2020-08-28] MEDS: Gabapentin 300 MG Capsule PO (10:09)
[2020-08-28 10:45] VITALS: BP 110/68; PULSE 72; RESP 14; TEMP 36.8; O2SAT 100
--- NOTE | 2020-08-28 11:19 | PN_ITS ---
Reason for Visit: Acute opioid withdrawal Subjective: Patient is a 20-year-old gentleman with history of opioid use admitted with acu te opioid withdrawal Objective: GENERAL: cooperative HEENT: Atraumatic; EYES; Anicteric, Normal Conjunctiva NECK; supple, normal thyroid, RESPIRATORY: Diminished to auscultation CARDIOVASCULAR: Regular S1 S2, GI: soft, normoactive bowel sounds, : No Renal angle tenderness; EXTREMITIES: No edema, no clubbing, MUSCULOSKELETAL: no muscle waisting NEURO: Awake; no lateralizing signs. SKIN: No Rash PSYCH; Flat affect Vitals/I&O's: Vital Signs Temp Pulse Resp BP Pulse Ox 98.2 F 72 14 110/68 100 08/28/20 10:45 08/28/20 10:45 08/28/20 10:45 08/28/20 10:45 08/28/20 10:45 Oxygen Delivery Method Room Air Weight: 75.4 kg Body Mass Index (BMI) 28.5 Intake and Output for Last 24 Hours 08/26/20 08/27/20 08/28/20 23:59 23:59 23:59 Intake Total 1200 / 1200 800 / 800 100 / 100 Balance 1200 / 1200 800 / 800 100 / 100 Current Medications Acetaminophen (Tylenol) 500 mg PO Q4H PRN PRN PRN Reason: Temp > 100.4 F Last Admin: 08/27/20 16:08 Dose: 500 mg Documented by: Al Hydroxide/Mg Hydroxide (Mylanta Ii) 30 ml PO Q6H PRN PRN PRN Reason: dyspesia Bisacodyl (Dulcolax) 10 mg RECTAL DAILY PRN PRN Reason: Constipation Buprenorphine HCl (Buprenorphine Hcl) 2 mg SL Q8H CECILIA; Taper Stop: 08/29/20 16:29 Last Admin: 08/28/20 10:09 Dose: 2 mg Documented by: Clonidine (Catapres) 0.1 mg PO Q8H PRN PRN PRN Reason: RESTLESSNESS Last Admin: 08/28/20 05:23 Dose: 0.1 mg Documented by: Dicyclomine HCl (Bentyl) 20 mg PO Q6H PRN PRN PRN Reason: Abdominal Discomfort Last Admin: 08/27/20 16:08 Dose: 20 mg Documented by: Gabapentin (Neurontin) 300 mg PO Q8H PRN PRN PRN Reason: moderate to severe anxiety Last Admin: 08/28/20 10:09 Dose: 300 mg Documented by: Hydroxyzine Pamoate (Vistaril Pamoate Capsule) 50 mg PO Q6H PRN PRN PRN Reason: mild anxiety Last Admin: 08/27/20 16:09 Dose: 50 mg Documented by: Ibuprofen (Motrin) 600 mg PO Q8H PRN PRN PRN Reason: Pain Score 1-10/10 Last Admin: 08/27/20 10:03 Dose: 600 mg Documented by: Loperamide HCl (Imodium) 2 mg PO Q4H PRN PRN PRN Reason: LOOSE STOOLS Methocarbamol (Methocarbamol) 1,500 mg PO Q6H PRN PRN PRN Reason: MUSCLE SPASM Last Admin: 08/27/20 10:04 Dose: 1,500 mg Documented by: Nicotine (Nicoderm Cq (Pbkc)) 21 mg TRANSDERM. DAILY CECILIA Last Admin: 08/28/20 10:09 Dose: 21 mg Documented by: Ondansetron HCl (Zofran) 8 mg PO Q8H PRN PRN PRN Reason: NAUSEA Senna (Senokot) 2 tablet PO QHS PRN PRN Reason: Constipation Sodium Chloride () 10 - 40 ml IV UD PRN PRN Reason: SALINE FLUSH Trazodone HCl (Desyrel) 100 mg PO QHS PRN PRN PRN Reason: INSOMNIA STROKE Vital Signs/Narrative: Vital Signs Temp Pulse Resp BP Pulse Ox 08/28/20 10:45 98.2 F 72 14 110/68 100 Medical Necessity - Tobacco Use Smoking Status: Current every day smoker Tobacco Use: Cigarettes Assessment/Plan All Active Problems Opioid withdrawal (Acute) Acute opioid withdrawal (Acute) 20-year-old gentleman with history of opioid dependence admitted with acute opioid withdrawal 1. Acute opioid withdrawal ?Admitted to regular nursing floor being managed with Subutex for medical stabilization 2. DVT prophylaxis ?Low risk did encourage early ambulation Inpatient E&M: [id number] [facility] [place] [facility] L1
[2020-08-28] MEDS: hydrOXYzine PAM 25 MG Capsule 50 MG PO (11:26)
--- NOTE | 2020-08-28 11:58 | NURSING ---
Patient leaving AMA, form signed. notified.
--- NOTE | 2020-08-28 12:41 | PCM.DC.SUM ---
Discharge Date and Diagnosis Date of Admission: 08/26/20 Date of Discharge: 08/28/20 - Primary Discharge Diagnosis Acute Problems: Acute opioid withdrawal - Secondary Discharge Diagnosis Chronic Problems: Chronic Problems Methamphetamine abuse (Chronic) Nicotine dependence, cigarette smoking (Chronic) Bipolar 1 disorder (Chronic) Hospital Course and Treatment Operations: None Summary of Care Provided: 20-year-old gentleman with history of opioid dependence admitted with acute opioid withdrawal 1. Acute opioid withdrawal ? Admitted to regular nursing floor being managed with Subutex for medical stabilization - Patient signed out AMA 2. DVT prophylaxis ? Low risk did encourage early ambulation - Physical Exam Vitals/I&O's: Vital Signs Temp Pulse Resp BP Pulse Ox 98.2 F 72 14 110/68 100 08/28/20 10:45 08/28/20 10:45 08/28/20 10:45 08/28/20 10:45 08/28/20 10:45 Oxygen Delivery Method Room Air Weight: 75.4 kg Body Mass Index (BMI) 28.5 Intake and Output for Last 24 Hours 08/26/20 08/27/20 08/28/20 23:59 23:59 23:59 Intake Total 1200 / 1200 800 / 800 100 / 100 Balance 1200 / 1200 800 / 800 100 / 100 HEENT: Atraumatic Lungs: Clear to auscultation Discharge Diet: No Restrictions Home Medications: Medications to take at Discharge NK 05/11/19 Primary Care Physician: Care Physician,No Primary [Primary Care Provider] - Disposition: Against Medical Advice Minutes spent on discharge:: 35 Patient Condition:: Good Medical Necessity - Tobacco Use Smoking Status: Current every day smoker Tobacco Use: Cigarettes Meaningful Use Info Meaningful Use Diagnoses (Choose all that apply): None applicable Inpatient E&M: [id number] [facility]
== END 2020-08-28 12:00 | disposition left against medical advice (07) ==
LOC: ED 15:18 → MS3 08-27 07:08
PROVIDERS: Admitting Provider Internal Medicine; Emergency Provider Emergency Medicine; Visit Provider Internal Medicine
DX: F11.23 Opioid dependence with withdrawal (principal); F17.210 Nicotine dependence, cigarettes, uncomplicated; F15.10 Other stimulant abuse, uncomplicated; F31.9 Bipolar disorder, unspecified; F12.10 Cannabis abuse, uncomplicated
CPT/HCPCS: 80053; 80307; 80320; 85025; 93005; 99284; 99406; H0012; A4216; G0480